=== PATIENT | female | born 1945 | race Hispanic/Latino ===

== ENCOUNTER 2019-11-20 11:10 | Inpatient (IN) | payer MEDICARE, BC, SELFPAY ==
--- NOTE | ~2019-11-20 | XR_ITS ---
EXAMINATION: XR chest 1V portable DATE: 11/22/2019 05:49 INDICATION: Left arm swelling. TECHNIQUE: A single frontal view of the chest was obtained. COMPARISON: Chest CT 11/21/2019 FINDINGS: The patient is rotated to her right. There are airspace opacities in left perihilar region and left lower lung zone. No pleural effusion or pneumothorax. Cardiomegaly is noted. There are is a prominent left paracardial fat pad. Mediastinal lipomatosis is noted. IMPRESSION: 1. Airspace opacities in left perihilar region and left lower lung zone, consistent with atelectasis versus pneumonia. 2. Cardiomegaly. Reviewed, dictated and finalized at location A. ICAL LABORATORY AIDES TEACHER IMPRESSION: 1. Airspace opacities in left perihilar region and left lower lung zone, consis tent with atelectasis versus pneumonia. 2. Cardiomegaly.
--- NOTE | ~2019-11-20 | US_ITS ---
EXAMINATION: US venous doppler [facility] DATE: 11/21/2019 08:19 INDICATION: Lower limb edema. TECHNIQUE: Grayscale ultrasound images without and with compression and Doppler ultrasound images of the bilateral lower extremity veins were obtained. COMPARISON: None. FINDINGS: The visualized portions of right common femoral vein, profunda (deep) femoral vein, femoral vein, pop liteal vein, and greater saphenous vein outflow are patent. The calf veins are not well visualized. The visualized portions of left common femoral vein, profunda femoral vein, femoral vein, popliteal v ein, and greater saphenous vein outflow are patent. The calf veins are not well visualized. IMPRESSION: 1. No deep venous thrombosis. Reviewed, dictated and finalized at location A. F UNIT FORESTER
--- NOTE | ~2019-11-20 | US_ITS ---
. EXAMINATION: US renal BI DATE: 11/21/2019 08:20 INDICATION: Acute renal failure. TECHNIQUE: Multiple ultrasound grayscale images of the kidneys were obtained. COMPARISON: None. FINDINGS: The right kidney measures 9.2 x 3.9 x 4.8 cm. The left kidney measures 9.3 x 5.4 x 4.9 cm. There is n o hydronephrosis. The bladder is not well distended. IMPRESSION: 1. Normal kidneys. No hydronephrosis. Reviewed, dictated and finalized at location A. ER PICKER
--- NOTE | ~2019-11-20 | MR_ITS ---
EXAMINATION: MR brain/brain stem wo con DATE: 11/23/2019 12:26 INDICATION: Altered mental status. TECHNIQUE: Magnetic resonance imaging (MRI) of the brain and brainstem was performed without intraven ous contrast. Sequences included sagittal and axial T1-weighted FSE, axial diffusion-weighted FS EPI, axial T2*-weighted GRE, axial T2-weighted FLAIR Propeller, and axial T2-weighted Propeller. Apparent diffusion coefficient (ADC) maps were created. COMPARISON: Head CT 11/22/2019 FINDINGS: There are scattered areas of nonspecific increased T2-weighted signal intensity in the cere bral white matter. There is a small area of cystic encephalomalacia in the posterior right frontal lo be sanabria radiata. There is a small area of cystic encephalomalacia in the left frontoparietal centru m semiovale. There is an old infarct in the left temporal occipital region. There is no acute ischemi c infarct or intracranial hemorrhage. The ventricles are normal in size. There are likely changes of ocular lens replacement surgeries. There is mucosal thickening in the paranasal sinuses. There is flu id in left maxillary sinus. There are small bilateral mastoid effusions. IMPRESSION: 1. Old infarcts involving the left temporal occipital region, left frontoparietal white matter, and r ight frontal lobe white matter. 2. Moderate nonspecific cerebral white matter disease, which likely represents chronic small vessel i schemic disease. Reviewed, dictated and finalized at location A. UCT MARKETING DIRECTOR IMPRESSION: 1. Old infarcts involving the left temporal occipital region, left frontopariet al white matter, and right frontal lobe white matter. 2. Moderate nonspecific cerebral white matter disease, which likely represents chronic small vessel ischemic disease.
--- NOTE | ~2019-11-20 | US_ITS ---
EXAMINATION: US carotid duplex BI DATE: 11/23/2019 09:40 INDICATION: Stroke. TECHNIQUE: Grayscale, color Doppler, and pulsed Doppler images of the cervical carotid arteries were obtained. The degree of vessel stenosis is placed in one of the following categories: normal, <50%, 5 0-69%, >=70% but less than near-occlusion, near-occlusion, or total occlusion. Note that percent sten osis relative to normal distal artery lumen diameter is indirectly measured from velocity measurement s as described by Leonardo, et al. Radiology 2003; [id number]. COMPARISON: None. FINDINGS: RIGHT: The right common carotid artery (CCA) peak systolic velocity (PSV) is 96 cm/s. The right internal car otid artery (ICA) PSV is 116 cm/s. The right ICA end-diastolic velocity (EDV) is 19 cm/s. The right I CA/CCA PSV ratio is 1.2. Grayscale and color Doppler images yield an estimate of <50% diameter reduct ion from plaque in the ICA. There is antegrade flow in the right vertebral artery. LEFT: The left CCA PSV is 100 cm/s. The left ICA PSV is 90 cm/s. The left ICA EDV is 24 cm/s. The left ICA/ CCA PSV ratio is <1. Grayscale and color Doppler images yield an estimate of <50% diameter reduction from plaque in the ICA. There is antegrade flow in the left vertebral artery. IMPRESSION: 1. <50% stenosis in the right internal carotid artery. 2. <50% stenosis in the left internal carotid artery. Reviewed, dictated and finalized at location A. E CUTTER
--- NOTE | ~2019-11-20 | US_ITS ---
EXAMINATION: US venous doppler UE EXAM DATE: 11/20/2019 12:24 INDICATION: Shortness of breath, left arm swelling for 3 days. TECHNIQUE: Multiple grayscale, color flow, Doppler sonographic images of the left upper extremity vei ns obtained by technologist. Compression was performed where able. Reportedly the radial and ulnar v eins were not evaluated, exam was ended because patient developed change in mental status during exam . There is no prior study for comparison. FINDINGS: Left upper extremity: Jugular vein: ------------> Normal. Subclavian vein: --------> Normal. Axillary vein:------------> Normal. Brachial vein:-----------> Normal. Basilic vein: ------------> Normal. Cephalic vein: ----------> Normal. Radial vein: ------------> Not evaluated. Ulnar vein: > Not evaluated. IMPRESSION: No evidence of deep venous thrombosis of the left upper extremity. Radial and ulnar veins not assessed. Reviewed, dictated and finalized at location B. ALER
--- NOTE | ~2019-11-20 | XR_ITS ---
EXAMINATION: XR chest 2V DATE: 11/26/2019 08:48 INDICATION: Shortness of breath and cough. TECHNIQUE: Frontal and lateral views of the chest were obtained. COMPARISON: Chest single view 11/22/2019, chest CT 11/21/2019 FINDINGS: There is a small left pleural effusion. There are airspace opacities in right lower lung zo ne and left mid and lower lung zones. No pneumothorax. Cardiomegaly is noted. There is focal mild yanet nosis of the trachea at the thoracic inlet, which may be from intubation injury. IMPRESSION: 1. Worsened small left pleural effusion. 2. Worsened airspace opacities in right lower lung zone and left mid and lower lung zones, consistent with atelectasis versus pneumonia. 3. Cardiomegaly. Reviewed, dictated and finalized at location A. CTOR SALES AND MARKETING
--- NOTE | ~2019-11-20 | XR_ITS ---
MODIFIED ESOPHAGRAM HISTORY: Dysphagia. TECHNIQUE: Modified barium esophagram was performed on 11/28/2019. I administered fluoroscopy and perfo rmed the exam with speech pathologist. Patient was seated for lateral fluoroscopic imaging for inges tion of thin liquids, pudding, solids and quantified amounts, followed by thin liquids an uncontrolle d amounts. This was recorded on tape. A single fluoroscopic spot image was also recorded. The DAP for this procedure was 2.60 Gycm2. The amount of fluoroscopy time used during this procedure was 2.5 min utes. FINDINGS: Oral stage: Mature spillage into the pharynx with every consistency. Pharyngeal stage: Trace laryngeal penetration following peaches with thin liquids which cleared with subsequent swallows. No aspiration. Cervical/esophageal stage: Adequate function. IMPRESSION: Trace laryngeal penetration without aspiration. Please correlate with speech pathologist findings and specific feeding recommendations. Reviewed, dictated and finalized at location A. FERRIER IMPRESSION: Trace laryngeal penetration without aspiration. Please correlate [facility] speech pathologist findings and specific feeding recommendations.
--- NOTE | ~2019-11-20 | CT_ITS ---
EXAMINATION:CT chest wo con DATE: 11/21/2019 08:19 INDICATION: Left arm swelling. TECHNIQUE: Computed tomography (CT) of the chest was performed without intravenous contrast. Automate d exposure control and iterative reconstruction technique were employed. The dose-length product (DLP ) was 691.37 mGy-cm. COMPARISON: None. FINDINGS: There is smooth septal thickening in the lungs, consistent with mild pulmonary edema. There is mild atelectasis in the lungs with a lower lobe predominance. There is mucous plugging in left lo wer lobe. There are small pleural effusions. Cardiomegaly is noted. There are coronary artery calcifi cations. No pericardial effusion. There is a small sliding hiatal hernia. There is a small volume of ascites in the hiatal hernia. There is mild mediastinal lymphadenopathy, likely reactive. Body wall e jp is noted, left worse than right. There is mild thoracic spondylosis. There is a benign bone rosalie nd in T10 vertebral body. IMPRESSION: 1. Mild pulmonary edema. 2. Small pleural effusions. 3. Mucous plugging in left lower lobe. 4. Cardiomegaly. 5. Asymmetric body wall edema, worse on the left. 6. Small sliding hiatal hernia. Reviewed, dictated and finalized at location A. HIATRIC ATTENDANT
--- NOTE | ~2019-11-20 | CT_ITS ---
EXAMINATION: CT brain wo con DATE: 11/22/2019 16:17 INDICATION: Altered mental status with confusion and inability to follow instructions. TECHNIQUE: Computed tomography (CT) of the head was performed without intravenous contrast. Sagittal and coronal reconstructions were performed. The mA was adjusted according to patient size. Iterative reconstruction technique was employed. The dose-length product was 983.67 mGy-cm. COMPARISON: None FINDINGS: No acute intracranial hemorrhage, acute infarction or abnormal extra axial fluid collection. There is a region of prominent nonspecific vasogenic edema in the left parietal lobe without evident volume l oss or loss of joshi matter density. More subtle mild scattered white matter hypoattenuation consisten t with chronic small vessel ischemic disease. Symmetric prominence of the sulci and ventricles consis tent with mild age-appropriate diffuse cerebral volume loss. No mass/mass effect. Changes of bilatera l intraocular lens replacement. The orbits and mastoid air cells are normal. Mild to moderate mucosa l thickening throughout the paranasal sinuses with layering mucus in the left maxillary sinus. Tiny b ilateral mastoid effusions. Intracranial calcified cerebral atherosclerosis is noted. IMPRESSION: 1. Moderate-sized region of prominent vasogenic edema in the left parietal lobe. Differential include s malignancy either primary or metastatic, infection, trauma or hemorrhage although no acute hemorrha ge is appreciated, ischemia including venous thrombosis, focal inflammation and acute hypertensive en cephalopathy. Recommend further evaluation with pre and postcontrast MRI. Reviewed, dictated and finalized at location A. ER ARMAMENT IMPRESSION: 1. Moderate-sized region of prominent vasogenic edema in the left parietal lobe . Differential includes malignancy either primary or metastatic, infection, tra carlos or hemorrhage although no acute hemorrhage is appreciated, ischemia includi ng venous thrombosis, focal inflammation and acute hypertensive encephalopathy. Recommend further evaluation with pre and postcontrast MRI.
[2019-11-20 11:25] LABS: Glucose Point of Care 61 (65-105)
[2019-11-20 11:26] VITALS: BP 151/92; PULSE 55; RESP 16; TEMP 36.8; O2SAT 99
--- NOTE | 2019-11-20 11:33 | ED.EXTPRO ---
HPI - Extremity Problem General Chief complaint: Extremity Problem,Nontraumatic Stated complaint: hand swelling Time Seen by Provider: 11/20/19 11:23 Source: patient Mode of arrival: EMS Limitations: other (poor historian) History of Present Illness HPI Narrative: Pt is a 73 y/o female who presents to the ED, via EMS, from [facility], with c/o lt arm swelling that started 2 days ago. Pt states that she had a stroke last year and has residual lt leg paralysis. She denies lt arm pain and states that she did not fall recently. Pt states that she thought she got a spider bite on her lt arm but she denies itching or pain to her lt arm. She notes that she had a spider bite in the past and had a reaction to it. Pt reports BLE swelling and pain and states that she does not walk since her CVA. She denies SOB and she is not on any blood thinners. A complete HPI is limited d/t pt being a poor historian. MD Complaint: extremity swelling Onset (ago): day(s) (2) Pain Consistency: constant Location: left and upper extremity Associated symptoms: other (BLE swelling and pain) Related Data Home Medications Medication Instructions Recorded Confirmed Mucinex 600 mg PO BID 11/20/19 11/20/19 Tylenol 325 mg PO Q6H PRN 11/20/19 11/20/19 amlodipine 10 mg PO DAILY 11/20/19 11/20/19 amoxicillin-pot clavulanate 1 tablet PO BID 11/20/19 11/20/19 famotidine 20 mg PO DAILY 11/20/19 11/20/19 ferrous sulfate 325 mg PO BID 11/20/19 11/20/19 furosemide 20 mg PO DAILY 11/20/19 11/20/19 loratadine 10 mg PO DAILY 11/20/19 11/20/19 Allergies Allergy/AdvReac Type Severity Reaction Status Date / Time No Known Allergies Allergy Verified 11/20/19 15:05 Review of Systems Review of Systems: All systems reviewed & are unremarkable except as noted in HPI and below Respiratory: Respiratory: Denies dyspnea Musculoskeletal: Musculoskeletal: Reports joint swelling (LUE, BLE) and Reports other (Reports BLE pain; Denies LUE pain) Integumentary/Breasts: Skin/Breast: Reports pruritus (to LUE) [facility] Past Medical History Medical History (Updated 11/20/19 @ 19:49 by Oziel Jara MD) Anemia CVA (cerebral vascular accident) HTN (hypertension) Left-sided weakness Surgical History Surgical History (Updated 11/20/19 @ 12:29 by Salome Morgan) No significant past surgical history Social History Social History (Updated 11/20/19 @ 12:30 by Salome Morgan) Smoking status: Never smoker Alcohol intake: never Substance use: never Living arrangements: assisted living Spiritual care concerns: No Agree to blood products: Yes Exam Narrative: Exam Narrative: GENERAL: Chronically ill-appearing, well-nourished, and in no acute distress. HEAD: Normocephalic, atraumatic. EYES: PERRL and EOMI. ENT: Mucous membranes moist. CHEST: Clear to auscultation. No respiratory distress. HEART: Bradycardic and regular. Normal peripheral pulses. ABDOMEN: Soft, nontender, nondistended, normal active bowel sounds. EXTREMITIES: Chronic bilateral lower extremity edema that is nonpitting. There is significant left upper extremity edema pitting up to the deltoid. Normal strength bilateral upper extremities. Chronic weakness in the left lower extremity from previous stroke. SKIN: Warm, dry, no rash. NEURO: Alert and oriented x 2-3 and is slow to answer questions. Course Course Emergency Course: I discussed the case with patient's primary care doctor in [place] Dr. Owusu. He reports that patient's creatinine of three-point is abnormal and compared to the lab from 3 years ago where she was at 1.2. Should he reports she was recently hospitalized at [facility] and we will request records. Patient has been receiving Lasix over the last 5 days to decrease edema in her upper extremity which has improved it but the cause is yet to be determined. Additionally while patient was getting her ultrasound she became lightheaded and diaphoretic. Blood
[2019-11-20 12:28] LABS: Glucose Point of Care 59 (65-105)
[2019-11-20] MEDS: DEXTROSE 50% 25 GM/50 ML SYRINGE (12:28)
[2019-11-20 12:37] LABS: Basophils Percent Auto 0.5 % (0.2-1.2); Eosinophils Absolute Auto 0.2 K/mm3 (0-0.3); Eosinophils Percent Auto 2.9 % (0-4.4); Hematocrit 29.3 % (37.0-47.0); Hemoglobin 9.1 g/dL (12.0-15.0); Immature Granulocyte Absolute 0.02 K/mm3 (0.00-0.031); Immature Granulocyte Percent A 0.3 % (0-0.5); Immature Platelet Fraction Pct 12.4 % (0.9-11.2); Lymphocytes Absolute Auto 0.83 K/mm3 (0.9-3.2); Lymphocytes Percent Auto 13.2 % (18.3-44.2); Mean Corpuscular HGB Conc 31.1 g/dl (32-36); Mean Corpuscular Volume 96.7 fl (80-100); Mean Platelet Volume 13.4 fl (7.4-10.4); Monocytes Absolute Auto 0.3 K/mm3 (0.1-0.6); Monocytes Percent Auto 5.4 % (2.6-8.5); Neutrophils Absolute Auto 4.9 K/mm3 (1.3-6.7); Neutrophils Percent Auto 77.7 % (45.5-73.1); Nucleated Red Blood Cells Absolute Auto 0.2 K/mm3 (0.0-0.012); Nucleated Red Blood Cells Perc 2.4 % (0.0-0.2); Platelet Count Result 196 k/mm3 (150-375); Red Blood Count 3.03 M/mm3 (4.2-5.4); Red Cell Distribution Width 16.4 % (11.5-14.5); White Blood Count 6.3 K/mm3 (4.5-10.0)
--- NOTE | 2019-11-20 12:40 | PC.NURSE ---
Pt. katina Tommie phone number [phone]. POA
[2019-11-20 12:46] LABS: INR 1.2; Prothrombin Time 14.4 Seconds (11.1-14.7)
[2019-11-20 12:52] LABS: Blood Urea Nitrogen 62 mg/dL (7-17); Calcium 8.8 mg/dL (8.4-10.2); Carbon Dioxide 19 mmol/L (22-30); Chloride 109 mmol/L (98-107); Estimated Glomerular Filt Rate 12; Glucose 68 mg/dL (65-105); Sodium 144 mmol/L (137-145)
[2019-11-20 13:14] LABS: Glucose Point of Care 99 (65-105)
[2019-11-20 13:51] LABS: Partial Thromboplastin Time 57.6 SECONDS (22.3-36.8)
[2019-11-20 15:42] VITALS: BP 111/51; PULSE 51; RESP 16; O2SAT 98
--- NOTE | 2019-11-20 15:49 | PC.NURSE ---
Called Tommie Velasquez, Pt. son and gave them an update.
--- NOTE | 2019-11-20 15:53 | ADMGEN ---
This patient, Maryann Velasquez, was admitted to 3 [facility] Surg Room 307-01. Patient/family oriented to hospital policies and general routines including ID bracelet, bed and alarms, visiting hours, pain management, procedures, bathroom and other care routines, personal items, smoking policy, room service/diet, and visiting hours. Valuables list has been completed. Information on how to activate the Rapid Response Team has been discussed. Patient/Family are encouraged to report perceived risks to care and to ask questions if they do not understand what they are told or what they should do.
[2019-11-20 16:00] VITALS: BP 104/35; PULSE 93; RESP 18; TEMP 36.2; O2SAT 96
[2019-11-20] MEDS: SODIUM CHLORIDE 0.9% IV 1,000 ML 125 ML IV CONT (16:34)
[2019-11-20 18:39] VITALS: BMI 38.9
[2019-11-20 22:00] VITALS: BP 106/50; PULSE 50; RESP 16; TEMP 35.4; O2SAT 97
[2019-11-20] MEDS: ACETAMINOPHEN 325 MG TABLET 650 MG PO (23:33)
--- NOTE | 2019-11-20 23:58 | PM.IMHP ---
H&P: HPI History of Present Illness Chief complaint: acute renal failure Narrative: Maryann Velasquez is a 73 year old female who resides at [facility]. The patient stated that she has been having some swelling to her left upper arm. She has had a previous stroke in the past that affected her left side but she does not recall her arm being like this before. Patient also has a scar noted to her left wrist and she does not recall what type of surgery that she had it was reported that she had a spider bite to her left arm in the past and I am wondering if she had surgery to that left arm because of that. The patient has not walked since she has had that CVA. She has been complaining of itching to her back and lower extremities. The patient denies having any kidney problems. She has not fallen or had any injuries the left arm it. No swelling was noted to the face. Limited history from the patient. Patient was recently hospitalized at [facility] and ER said that they requested records. She has also been receiving Lasix over the last 5 days due to increased edema to lower extremities. The patient had a ultrasound of the left arm which was negative for DVT. Her blood sugar was noted to be 59 and she received D50 and drink some juice. The patient stated she has not been drinking as much because her left tonsil hurts her. I was not able to see posterior pharyngeal area. Patient was complaining of itching so I gave her 1 time dose of Benadryl. She was started on IV fluids. Patient has been on Lasix for increased swelling to her lower extremities but denies any history of CHF. Date of service is 11/20/2019 Review of Systems Review of Systems: Narrative: Patient is complaining of itching and crying because she is sitting. Limited history. The patient cannot recall why she has a scar to her left wrist. The she said she did have a spider bite that had to be drained. She has had a stroke in the past that affected her left side. All systems reviewed & are unremarkable except as noted in HPI and below ROS unobtainable: unobtainable due to mental status Constitutional: Constitutional: Reports as per HPI and Reports no additional constitutional complaints Eyes: Eyes: Reports as per HPI and Reports no additional eye complaints ENT: Reports system reviewed and no additional complaints, except as documented and Reports Normal hearing present Cardiovascular: Cardiovascular: Reports no additional cardiovascular complaints Respiratory: Respiratory: Reports no additional respiratory complaints and Reports no additional respiratory complaints Gastrointestinal: Gastrointestinal: Reports as per HPI and Reports no additional gastrointestinal complaints Musculoskeletal: Musculoskeletal: Reports no additional musculoskeletal complaints Integumentary/Breasts: Skin/Breast: Reports system reviewed and no additional complaints, except as docu and Reports as per HPI Neurologic: Reports system reviewed and no additional complaints, except as documented, Reports as per HPI and Reports Normal hearing present Psychiatric: Psychiatric: Reports no additional psychiatric complaints and Reports as per HPI Endocrine: Endocrine: Reports no additional endocrine complaints Hematologic/Lymphatic: Hematologic/Lymphatic: Reports no additional hematologic/lymphatic complaints Allergic/Immunologic: Allergic/Immunologic: Reports no additional allergic/immunologic complaints [facility] Past Medical History Medical History (Updated 11/21/19 @ 00:10 by Leda Paulson NP) Anemia CVA (cerebral vascular accident) Left side effects HTN (hypertension) Left-sided weakness Surgical History Surgical History (Updated 11/21/19 @ 00:17 by Leda Paulson NP) H/O left wrist surgery S/P hernia repair Family History Family History (Updated 11/21/19 @ 00:18 by Leda Paulson NP) Mother due to natural causes Sibling Diabetes mellitus Father
[2019-11-21] VITALS (14 sets, daily range): BP systolic 96–110; BP diastolic 42–50; PULSE 50–78; RESP 16–18; TEMP 35.4–36.8; O2SAT 90–98
--- NOTE | 2019-11-21 | ECHO_ITS ---
Patient Info Name: Maryann Velasquez Age: 73 years : 1945 Gender: Female Ht: 63 in Wt: 219 lbs BSA: 2.15 m2 HR: 62 bpm BP: 102 / 42 mmHg Technical Quality: Good Exam Date: 11/21/2019 3:11 PM Exam Location: [facility] Patient Status: Inpatient Admit Date: 11/21/2019 Staff Ordering Physician: Leda Paulson NP Railroad Construction Director: Jatinder Gomes RDCS, RT Attending Provider: Gina Gupta MD Referring Physician: Lorene BASHIR; Exam Type: CA echo doppler color flow Study Info Indications R60.0 - Localized edema Complete two-dimensional, color flow and Doppler transthoracic echocardiogram is performed. Summary 1. Left ventricular chamber dimension is mildly enlarged. 2. Left ventricular systolic function is normal, estimated at 60-65%. 3. There is moderately increased left ventricular wall thickness. 4. The left ventricular diastolic function is abnormal. 5. E/e' 23 is significantly elevated. 6. Left atrial chamber dimension is moderately enlarged. 7. Right atrial chamber dimension is mildly enlarged. 8. The mitral valve has moderately calcified annulus. 9. There is mild mitral valve regurgitation. 10. There is moderate tricuspid valve regurgitation. 11. Mild pulmonary hypertension, estimated pulmonary arterial systolic pressure is 45 mmHg. 12. There is trace pulmonic regurgitation. 13. Dilated inferior vena cava with >50% collapse upon inspiration consistent with elevated right atrial pressure, 10 mmHg. 14. There is small circumferential pericardial effusion. Left Ventricle E/e' 23 is significantly elevated. Left ventricular chamber dimension is mildly enlarged. Left ventricular systolic function is normal, estimated at 60-65%. There is moderately increased left ventricular wall thickness. The left ventricular diastolic function is abnormal. Right Ventricle Right ventricular chamber dimension is normal. Right ventricular systolic function is normal. Left Atria Left atrial chamber dimension is moderately enlarged. Right Atria Right atrial chamber dimension is mildly enlarged. Aortic Valve The aortic valve is trileaflet. There is no aortic valve stenosis. There is no aortic valve regurgitation. Pulmonic Valve There is trace pulmonic regurgitation. Mitral Valve The mitral valve has moderately calcified annulus. There is no mitral valve stenosis. There is mild mitral valve regurgitation. Tricuspid Valve There is moderate tricuspid valve regurgitation. Mild pulmonary hypertension, estimated pulmonary arterial systolic pressure is 45 mmHg. Pericardium/Pleural There is small circumferential pericardial effusion. Inferior Vena Cava Dilated inferior vena cava with >50% collapse upon inspiration consistent with elevated right atrial pressure, 10 mmHg. Aorta The aortic root size at the sinus of Valsalva is normal. Left Ventricular Outflow Tract Name Value Normal LVOT 2D LVOT Diameter 2.0 cm LVOT Doppler LVOT Peak Gradient 3 mmHg LVOT Mean Gradient 1 mmHg LVOT VTI 20 cm
--- NOTE | 2019-11-21 01:30 | PC.NURSE ---
4oz orange juice given for low BS. Waiting for call back from hospitalist.
[2019-11-21 01:31] LABS: Glucose Point of Care 64 (65-105)
[2019-11-21 02:07] LABS: Glucose Point of Care 70 (65-105)
--- NOTE | 2019-11-21 02:23 | PC.NURSE ---
4oz apple juice and titus crackers given.
[2019-11-21 02:39] LABS: Glucose Point of Care 85 (65-105)
[2019-11-21] MEDS: SODIUM CHLORIDE 0.9% IV 1,000 ML 125 ML IV CONT (03:51)
[2019-11-21] MEDS: FAMOTIDINE 20 MG TABLET PO (09:59)
[2019-11-21] MEDS: FERROUS SULFATE 324 MG TABLET PO ×2 (09:59→18:05)
[2019-11-21] MEDS: ACETAMINOPHEN 325 MG TABLET 650 MG PO (10:00)
[2019-11-21 10:46] LABS: Blood Urea Nitrogen 61 mg/dL (7-17); Calcium 8.4 mg/dL (8.4-10.2); Carbon Dioxide 18 mmol/L (22-30); Chloride 112 mmol/L (98-107); Estimated CRCL calculation 14 ml/min; Estimated Glomerular Filt Rate 12; Glucose 57 mg/dL (65-105); Potassium 5.2 mmol/L (3.4-5.0); Sodium 143 mmol/L (137-145)
[2019-11-21] MEDS: GLUCOSE ORAL GEL 15 GM OF GLUCSE IN 37.5 GM TUBE PO (10:51)
--- NOTE | 2019-11-21 11:01 | PM.IMPN ---
Progress Note: A&P Assessment and Plan (1) Acute renal failure: Qualifiers: Acute renal failure type: unspecified Qualified Code(s): N17.9 - Acute kidney failure, unspecified Code(s): N17.9 - Acute kidney failure, unspecified Status: Acute Assessment and Plan: STop iv fluids pt is edematous, US renal completed, creat is over 3, correct potassium, consult nephrology. pass catheter monitor UO. (2) Anemia: Code(s): D64.9 - Anemia, unspecified Status: Chronic Assessment and Plan: Most likely is chronic. (3) HTN (hypertension): Code(s): I10 - Essential (primary) hypertension Status: Chronic Assessment and Plan: Continue lasix hold other BP medications (4) Arm edema: Code(s): R60.0 - Localized edema Status: Acute Assessment and Plan: Doppler was performed to the left upper extremity which was negative for any DVT. Could this possibly SVC syndrome? Rpt US of upper ext. lower ext is negative. (5) Hypoglycemia: Code(s): E16.2 - Hypoglycemia, unspecified Status: Acute Assessment and Plan: Continue to monitor blood sugars. Check cortisol level. Could she have some adrenal insufficiency? Subjective Date/time seen: 11/21/19 11:01 Interval history: 73 year old female who resides at [facility]. The patient stated that she has been having some swelling to her left upper arm. She has had a previous stroke in the past that affected her left side but she does not recall her arm being like this before. Pt is a poor historian appears tired and malaise. Holding some conversation. Pt looks swollen all over. potassium is 5.2, creat is 3.7. US renal is normal, no hydronephrosis. Venous dopplers are negative. History of CVA and HTN. Review of Systems Review of Systems: All systems reviewed & are unremarkable except as noted in HPI and below Respiratory: Respiratory: Reports chest congestion and Reports dyspnea Comments: whitish phelgm Gastrointestinal: Gastrointestinal: Denies no additional gastrointestinal complaints Integumentary/Breasts: Comments: Overall anasarca Exam Const: General: lethargic, uncomfortable and other (unwell, facial swelling ) Orientation/consciousness: oriented to person and oriented to place Limitations: no limitations Chest: Chest palpation & inspection: normal inspection of the chest Resp: Effort & Inspection: normal respiratory effort Auscultation: clear to auscultation bilaterally Percussion: percussion normal Cardio: Palpation: normal PMI Rate: regular rate Rhythm: regular rhythm Heart sounds: S1 normal heart sound present and S2 normal heart sound present Neuro: General: oriented to person and oriented to place Cranial nerves: Yes Equal, round and reactive pupils present and Yes Normal hearing present Cognition (Neuro): normal cognition Speech: normal speech Gait exam (Neuro): Normal gait present Motor exam (neuro): 5/5 motor strength present throughout Sensory Exam: normal sensation Extrem: General: other (3 plus pitting edema of Bilateral legs up to groin area ) Psych: Appearance: grossly normal Mental Status: mental status grossly normal Speech and movement: Normal speech and movement present Affect: normal affect Attitude: cooperative Thought process: Normal thought process present Insight: Good insight present (Psych) Judgement: Good judgement present (Psych) Objective Data Vital Signs Vital Signs: Vital Signs - 24 hr 11/20/19 11:26 11/20/19 15:42 11/20/19 16:00 Temperature 36.8 C 36.2 C L Pulse Rate 55 L 51 L 93 Respiratory Rate 16 16 18 Blood Pressure 151/92 H 111/51 L 104/35 L Pulse Oximetry 99 98 96 11/20/19 22:00 11/21/19 01:00 11/21/19 01:15 Temperature 35.4 C L 35.5 C L 35.5 C L Pulse Rate 50 L 52 L 52 L Respiratory Rate 16 16 16 Blood Pressure 106/50 L 103/50 L 101/46 L Pulse Oximetry 97 96 95 11/21/19 01:30 11/21/19 01:45
[2019-11-21] MEDS: DEXTROSE 50% 25 GM/50 ML SYRINGE IV PUSH ×5 (11:15→23:20)
[2019-11-21 11:37] LABS: Glucose Point of Care 58 (65-105)
[2019-11-21 11:37] LABS: Glucose Point of Care 122 (65-105)
[2019-11-21 11:37] LABS: Glucose Point of Care 62 (65-105)
[2019-11-21] MEDS: SODIUM POLYSTYRENE SULFONONATE 15 GM/60 ML BTL PO (12:36)
[2019-11-21] MEDS: HYDROCORTISONE 1% 30 GM OINTMENT 1 APPLIC TOPICAL ×2 (12:37→21:05)
[2019-11-21 15:47] LABS: Urine Cotinine NEGATIVE
[2019-11-21 15:54] LABS: Creatinine Urine 129.3 mg/dL; Urea Random Urine 392 MG/DL
[2019-11-21 15:57] LABS: Sodium Urine Random 23 meq/L
[2019-11-21 16:55] LABS: MALB Creatinine Ratio 685.5 mg/g (0-30); Microalbumin Urine Random 886.4 mg/L (0-16.7)
[2019-11-21 16:56] LABS: Creatinine Urine 130.2 mg/dL; Total Protein Urine Random 93 mg/dL
--- NOTE | 2019-11-21 17:50 | PM.CNNEP ---
Assessment and Plan Assessment and plan (1) Acute renal failure: Qualifiers: Acute renal failure type: unspecified Qualified Code(s): N17.9 - Acute kidney failure, unspecified Code(s): N17.9 - Acute kidney failure, unspecified Status: Acute (2) Chronic kidney disease, stage 3: Code(s): N18.3 - Chronic kidney disease, stage 3 (moderate) Status: Acute (3) Arm edema: Code(s): R60.0 - Localized edema Status: Acute (4) HTN (hypertension): Code(s): I10 - Essential (primary) hypertension Status: Chronic (5) Anemia: Code(s): D64.9 - Anemia, unspecified Status: Chronic Assessment and Plan: . Additional Plan Maryann has acute kidney injury on top of her baseline kidney disease. Unfortunately, the exact etiology of this insult to her kidneys is not entirely clear at this time. Her urine electrolytes that were just done recently suggest prerenal azotemia/volume depletion despite the fact that she has clear evidence of volume overload/swelling/edema on physical exam. Her renal ultrasound demonstrates no anatomical abnormalities either. This would appear to be a situation where she is intravascularly volume depleted despite the fact that she has outward signs of significant/severe fluid retention. This type of phenomenon is usually seen in patients who have cardiomyopathies, liver disease, or any type of physiological state with there is decreased effective circulating volume. I suppose it could also be related by the simple fact that she is not eating and drinking very well and possibly resulting in some degree of hypoalbuminemia thereby causing third-spacing and hence the a for mentioned swelling/edema. Why this patient has this condition is not entirely clear to me at this time. As she is quite swollen and not making much urine, I am still tempted to give a trial of high-dose IV diuretics to see if this augments her urine output and maybe helps her overall volume status. Although her albumin is not that low, another consideration would be the use of IV albumin ?chased? by IV diuretics to see if this would augment her urine output and at the same time maintain stability in her renal function as well. I did have a fairly long lengthy discussion with her son (> 20 minutes) at bedside regarding her renal dysfunction and my concern that if all conservative therapy fails to improve her current condition, she may require renal replacement therapy/dialysis to maintain stability in her electrolytes, volume status, and clearance of the uremic toxins. He appeared to voice understanding as already mentioned, she was on dialysis before about a year ago although the circumstances were different. I will continue to follow the patient with you while she remains hospitalized and make further recommendations during her hospital course. Thank you for allowing me to participate in the care of this patient. History of Present Illness Reason for Consult Consult date: 11/21/19 Reason for consult: acute renal failure (on chronic kidney disease) Chief Complaint Chief complaint: acute renal failure History of Present Illness Narrative: All of the information I have obtained is from review of the electronic medical record, records from her previous hospitalization at [facility] [place] [place] approximately a year ago, and the patient's family at bedside as the patient is a very poor historian. The patient is a 73 y/o female with a past medical history as outlined below who presented to [facility] ER for her assisted living facility with complaints of left arm. Patient has a history of a CVA approximately year ago with associated left-sided paralysis. Apparently, she always has some degree of mild edema/swelling on the left side of her body but in the last few days it seems to have clinically deteriorated/worsened. She also has bilateral lower extremity swelling worse on the left b
[2019-11-21 18:11] LABS: Glucose Point of Care 45 (65-105)
[2019-11-21 18:11] LABS: Glucose Point of Care 81 (65-105)
[2019-11-21] MEDS: BUMETANIDE INJ 2.5 MG/10 ML VIAL 2 MG IV PUSH (18:39)
[2019-11-21 21:51] LABS: Glucose Point of Care 76 (65-105)
[2019-11-21 21:51] LABS: Glucose Point of Care 60 (65-105)
[2019-11-21 22:08] LABS: Glucose Point of Care 52 (65-105)
[2019-11-21] MEDS: DEXTROSE 5% 1,000 ML 1,000 ML 30 ML IV CONT (22:28)
[2019-11-21 23:30] LABS: Glucose Point of Care 71 (65-105)
[2019-11-21 23:30] LABS: Glucose Point of Care 51 (65-105)
[2019-11-21 23:53] LABS: Glucose Point of Care 68 (65-105)
[2019-11-22] VITALS (8 sets, daily range): BP systolic 115–145; BP diastolic 34–83; PULSE 56–75; RESP 16–20; TEMP 36.1–36.9; O2SAT 94–100
[2019-11-22] MEDS: DEXTROSE 50% 25 GM/50 ML SYRINGE IV PUSH ×3 (00:10→02:29)
[2019-11-22 00:31] LABS: Glucose Point of Care 51 (65-105)
[2019-11-22 00:55] LABS: Glucose Point of Care 88 (65-105)
[2019-11-22 01:16] LABS: Glucose Point of Care 61 (65-105)
[2019-11-22] MEDS: DEXTROSE 10% 1,000 ML 50 ML IV CONT (01:33)
[2019-11-22 02:17] LABS: Glucose Point of Care 55 (65-105)
[2019-11-22 02:56] LABS: Glucose Point of Care 68 (65-105)
[2019-11-22] MEDS: GLUCAGON FOR INJ 1 MG VIAL IM ×2 (02:59→05:26)
[2019-11-22 03:25] LABS: Glucose Point of Care 90 (65-105)
[2019-11-22 03:36] LABS: Basophils Percent Auto 0.3 % (0.2-1.2); Eosinophils Absolute Auto 0.2 K/mm3 (0-0.3); Eosinophils Percent Auto 2.5 % (0-4.4); Hemoglobin 8.1 g/dL (12.0-15.0); Immature Granulocyte Absolute 0.02 K/mm3 (0.00-0.031); Immature Granulocyte Percent A 0.3 % (0-0.5); Lymphocytes Percent Auto 13.9 % (18.3-44.2); Mean Corpuscular HGB Conc 31.2 g/dl (32-36); Mean Corpuscular Hemoglobin 29.6 pg (26-34); Mean Corpuscular Volume 94.9 fl (80-100); Mean Platelet Volume 12.5 fl (7.4-10.4); Monocytes Absolute Auto 0.5 K/mm3 (0.1-0.6); Monocytes Percent Auto 7.1 % (2.6-8.5); Neutrophils Absolute Auto 5.5 K/mm3 (1.3-6.7); Neutrophils Percent Auto 75.9 % (45.5-73.1); Nucleated Red Blood Cells Absolute Auto 0.2 K/mm3 (0.0-0.012); Nucleated Red Blood Cells Perc 2.1 % (0.0-0.2); Platelet Count Result 193 k/mm3 (150-375); Red Blood Count 2.74 M/mm3 (4.2-5.4); Red Cell Distribution Width 16.6 % (11.5-14.5); White Blood Count 7.2 K/mm3 (4.5-10.0)
[2019-11-22 03:49] LABS: Alanine Aminotransferase 23 U/L (4-35); Albumin Level 3.1 g/dL (3.5-5.1); Alkaline Phosphatase 164 U/L (38-126); Aspartate Amino Transferase 20 U/L (14-36); Bilirubin,Total 0.6 mg/dL (0.2-1.3); Blood Urea Nitrogen 60 mg/dL (7-17); Calcium 8.5 mg/dL (8.4-10.2); Carbon Dioxide 18 mmol/L (22-30); Chloride 113 mmol/L (98-107); Estimated CRCL calculation 14 ml/min; Estimated Glomerular Filt Rate 11; Glucose 84 mg/dL (65-105); Magnesium 2.4 mg/dL (1.6-2.3); Potassium 4.5 mmol/L (3.4-5.0); Sodium 144 mmol/L (137-145)
[2019-11-22 03:51] LABS: Albumin Level 3.1 g/dL (3.5-5.1); Blood Urea Nitrogen 60 mg/dL (7-17); Calcium 8.4 mg/dL (8.4-10.2); Carbon Dioxide 18 mmol/L (22-30); Chloride 112 mmol/L (98-107); Estimated CRCL calculation 14 ml/min; Estimated Glomerular Filt Rate 11; Glucose 85 mg/dL (65-105); Phosphorus 5.6 mg/dL (2.5-4.5); Potassium 4.5 mmol/L (3.4-5.0); Sodium 144 mmol/L (137-145)
[2019-11-22 04:06] LABS: Glucose Point of Care 80 (65-105)
[2019-11-22 04:28] LABS: Hepatitis B Surface Antigen Negative (Negative)
[2019-11-22 04:34] LABS: HAV RESULT Negative (Negative); Hepatitis B Core IgM Result Negative (Negative)
[2019-11-22 04:45] LABS: Hepatitis B Surface Anti Res Negative; Hepatitis C Virus Antibody Negative (Negative)
[2019-11-22 05:08] LABS: Glucose Point of Care 80 (65-105)
[2019-11-22 05:52] LABS: Add Urine Microscopic? YES; Appearance Urine Cloudy (Clear); Bilirubin Urine Negative (Negative); Blood Urine 3+ (Negative); Color Urine Yellow (Yellow); Glucose Urine UA Negative (Negative); Ketones Urine Negative (Negative); Leukocyte Esterase Ur 2+ LEU/UL (Negative); Mucus Urine Rare /lpf; Nitrate Urine Negative (Negative); Protein Urine 2+ mg/dL (Negative); RBC Urine >75 /hpf (0-2); Specific Grav Ur 1.014 (1.001-1.035); Squamous Epithelial Cell Urine Rare /hpf (Few); Urobilinogen Urine Negative mg/dL (<2.0); WBC Urine 31-50 /hpf
[2019-11-22 06:40] LABS: Glucose Point of Care 96 (65-105)
[2019-11-22 06:44] LABS: Free T4 Free Thyroxine Reflex 1.04 ng/dL (0.78-2.19)
[2019-11-22 07:29] LABS: Total Triiodothyronine (T3) 0.69 NG/ML (0.97-1.69)
[2019-11-22] MEDS: BUMETANIDE INJ 2.5 MG/10 ML VIAL 2 MG IV PUSH ×3 (08:56→18:16)
[2019-11-22] MEDS: HYDROCORTISONE 1% 30 GM OINTMENT 1 APPLIC TOPICAL ×2 (08:57→21:20)
[2019-11-22 09:16] LABS: Glucose Point of Care 73 (65-105)
[2019-11-22 11:45] LABS: Glucose Point of Care 70 (65-105)
--- NOTE | 2019-11-22 12:13 | PCSTNOTE ---
Bedside Swallow Evaluation attempted this date. Pt was somnolent and could not be roused. Respiration is wet/gurgly at baseline, and the pt's family reports coughing up phlegm when she drinks. Bedside evaluation may not be appropriate. Consider MBS when pt's mental status improves.
[2019-11-22] MEDS: DEXTROSE 10% 1,000 ML 100 ML IV CONT ×2 (12:34→23:34)
[2019-11-22] MEDS: TOLNAFTATE 1% POWDER 45 GM BTL 1 APPLIC TOPICAL ×2 (12:36→21:20)
--- NOTE | 2019-11-22 13:46 | PM.IMPN ---
Progress Note: A&P Assessment and Plan (1) Acute renal failure: Qualifiers: Acute renal failure type: unspecified Qualified Code(s): N17.9 - Acute kidney failure, unspecified Code(s): N17.9 - Acute kidney failure, unspecified Status: Acute Assessment and Plan: Pt is on diuretics, pt is edematous, US renal completed, creat is over 3, consult nephrology. pass catheter monitor UO. Continue to monitor creat. Pt may benefit from dialysis, if creat continues to raise. (2) Anemia: Code(s): D64.9 - Anemia, unspecified Status: Chronic Assessment and Plan: Most likely is chronic. (3) HTN (hypertension): Code(s): I10 - Essential (primary) hypertension Status: Chronic Assessment and Plan: Continue lasix hold other BP medications (4) Arm edema: Code(s): R60.0 - Localized edema Status: Acute Assessment and Plan: Doppler was performed to the left upper extremity which was negative for any DVT. Could this possibly SVC syndrome? Rpt US of upper ext. lower ext is negative. (5) Hypoglycemia: Code(s): E16.2 - Hypoglycemia, unspecified Status: Acute Assessment and Plan: Continue to monitor blood sugars. Check cortisol level. Could she have some adrenal insufficiency? (6) UTI (urinary tract infection): Code(s): N39.0 - Urinary tract infection, site not specified Status: Acute Assessment and Plan: pt has a UTi treat with iv rocephin pt to have blood cultures drawn ? sepsis Subjective Date/time seen: 11/22/19 13:46 Interval history: 73 year old female who resides at [facility]. The patient stated that she has been having some swelling to her left upper arm. She has had a previous stroke in the past that affected her left side but she does not recall her arm being like this before. Pt is a poor historian appears tired and malaise. Holding some conversation. Pt looks swollen all over. potassium is 4.5, creat is 3.9. US renal is normal, no hydronephrosis. Venous dopplers are negative. History of CVA and HTN. Son by her bedside, explains that she did have dialysis in the past. daughter in law mentions some lumps in her breasts, I explained she can have a US of breasts later. Pt may benefit from dialysis, continue to watch.Pt is not eating much ? confusion ? sepsis ? uremia. MBS ordered pt is on D10. Review of Systems Review of Systems: All systems reviewed & are unremarkable except as noted in HPI and below ROS unobtainable: unobtainable due to mental status Exam Const: General: lethargic, uncomfortable and other (unwell, facial swelling ) Nutritional Appearance: average body habitus and overweight Orientation/consciousness: oriented to person, oriented to place and lethargic Limitations: no limitations HENMT: Head: normal to inspection, No palpable skull fracture present, normocephalic and atraumatic Ears: hearing grossly normal bilaterally and external ears normal General nose exam: Normal external nose present, Normal nares present and No nasal polyps present Mouth: Yes Normal oral and palatal mucosa present Throat: posterior oropharynx normal Eyes: General: appearance normal, both eyes and all related structures Alignment and Position: alignment normal Periorbital: periorbital findings normal Eyelids: eyelids normal Conjunctivae: conjunctivae normal Sclera: sclerae normal Cornea: corneas normal Pupils: Equal, round and reactive pupils present and Pupil accommodation reflex normal EOM: EOMs intact bilaterally Neck: Neck: normal visual inspection, full ROM, no lymphadenopathy, trachea midline and supple Thyroid: thyroid normal Carotids: normal carotid upstroke Lymphatic: no lymphadenopathy noted Chest: Chest palpation & inspection: normal inspection of the chest Resp: Effort & Inspection: normal respiratory effort Auscultation: clear to auscultation bilaterally Percussion: percussion no
[2019-11-22 14:43] LABS: Glucose Point of Care 82 (65-105)
--- NOTE | 2019-11-22 14:51 | P.PNNP_ITS ---
Progress Note: A&P Assessment and Plan (1) Acute renal failure: Qualifiers: Acute renal failure type: unspecified Qualified Code(s): N17.9 - Acute kidney failure, unspecified Code(s): N17.9 - Acute kidney failure, unspecified Status: Acute Assessment and Plan: * etiology unclear * urine electrolytes suggest prerenal azotemia (in spite of clear evidence of volume overload) * UA suggestive of an UTI -- contributing to acute renal dysfunction?? * renal ultrasound unremarkable * confusion concerning -- possible uremia or related to acute infection versus neurological issue? (2) Chronic kidney disease, stage 3: Code(s): N18.3 - Chronic kidney disease, stage 3 (moderate) Status: Acute Assessment and Plan: * baseline creatinine ~ 1.1 - 1.2mg/dl * secondary ot HTN, vascular disease and age (3) Anasarca: Code(s): R60.1 - Generalized edema Status: Acute Assessment and Plan: * significant issue at this time * poor response to IV diuretics * will change bumex to tid dosing and add metolazone * may need DUF/renal replacement therapy just to help stabilize volume status (4) HTN (hypertension): Code(s): I10 - Essential (primary) hypertension Status: Chronic Assessment and Plan: * reasonable control at this time * given #1, do not want to overcontrol it * follow trend of hemodynamics (5) Anemia: Code(s): D64.9 - Anemia, unspecified Status: Chronic Assessment and Plan: * presumably related to BLOSSOM, CKD, and acute illness * follow trend of H/H * consider empiric Epogen (6) UTI (urinary tract infection): Code(s): N39.0 - Urinary tract infection, site not specified Status: Acute Assessment and Plan: * UA highly suggestive * follow culture results * started on antibiotics Will continue to follow. Subjective Date/time seen: 11/22/19 14:51 Not much urine output despite IV diuretics; mentation has worsened as well -- back from CT of head as nursing reports discrepancy in pupil size; ABG with acidosis as well as hypoxia; currently on ventimask. Exam Narrative: Exam Narrative: General: WD/WN female who appears lethargic Heart: normal S1 and S2; no rub Lungs: decreased at the bases Abdomen: soft, nontender, nondistended, positive bowel sounds Extremities: no cyanosis or clubbing; 2 - 3+ edema Skin: warm and dry Objective Data Vital Signs Vital Signs: Vital Signs Temp Pulse Resp BP Pulse Ox 11/22/19 06:00 36.5 C 66 16 122/44 L 94 11/21/19 22:00 36.8 C 78 16 101/45 L 96 Intake/Output Intake/Output: Intake & Output 11/19/19 11/20/19 11/21/19 11/22/19 23:59 23:59 23:59 23:59 Intake Total 120 2137 1088 Output Total 40 250 Balance 120 2097 838 Meds/Results Medications: Active Medications Generic Name Dose Route Start Last Admin Trade Name Freq PRN Reason Stop Dose Admin Acetaminophen 650 mg 11/20/19 14:20 11/21/19 10:00 Tylenol Tablet PO 650 mg Q4H PRN Administration Mild Pain (1-3) or Fever Hydrocodone Bitart/Acetaminophen 1 tab 11/20/19 14:20 11/20/19 20:57 [place] 5-325 Mg PO 1 tab Q4H PRN Administration Pain Rated 4-6 Bumetanide 2 mg 02/
--- NOTE | 2019-11-22 14:51 | PM.PNNEP ---
Progress Note: A&P Assessment and Plan (1) Acute renal failure: Qualifiers: Acute renal failure type: unspecified Qualified Code(s): N17.9 - Acute kidney failure, unspecified Code(s): N17.9 - Acute kidney failure, unspecified Status: Acute Assessment and Plan: etiology unclear urine electrolytes suggest prerenal azotemia (in spite of clear evidence of volume overload) UA suggestive of an UTI -- contributing to acute renal dysfunction?? renal ultrasound unremarkable confusion concerning -- possible uremia or related to acute infection versus neurological issue? (2) Chronic kidney disease, stage 3: Code(s): N18.3 - Chronic kidney disease, stage 3 (moderate) Status: Acute Assessment and Plan: baseline creatinine ~ 1.1 - 1.2mg/dl secondary ot HTN, vascular disease and age (3) Anasarca: Code(s): R60.1 - Generalized edema Status: Acute Assessment and Plan: significant issue at this time poor response to IV diuretics will change bumex to tid dosing and add metolazone may need DUF/renal replacement therapy just to help stabilize volume status (4) HTN (hypertension): Code(s): I10 - Essential (primary) hypertension Status: Chronic Assessment and Plan: reasonable control at this time given #1, do not want to overcontrol it follow trend of hemodynamics (5) Anemia: Code(s): D64.9 - Anemia, unspecified Status: Chronic Assessment and Plan: presumably related to BLOSSOM, CKD, and acute illness follow trend of H/H consider empiric Epogen (6) UTI (urinary tract infection): Code(s): N39.0 - Urinary tract infection, site not specified Status: Acute Assessment and Plan: UA highly suggestive follow culture results started on antibiotics Will continue to follow. Subjective Date/time seen: 11/22/19 14:51 Not much urine output despite IV diuretics; mentation has worsened as well -- back from CT of head as nursing reports discrepancy in pupil size; ABG with acidosis as well as hypoxia; currently on ventimask. Exam Narrative: Exam Narrative: General: WD/WN female who appears lethargic Heart: normal S1 and S2; no rub Lungs: decreased at the bases Abdomen: soft, nontender, nondistended, positive bowel sounds Extremities: no cyanosis or clubbing; 2 - 3+ edema Skin: warm and dry Objective Data Vital Signs Vital Signs: Vital Signs Temp Pulse Resp BP Pulse Ox 11/22/19 06:00 36.5 C 66 16 122/44 L 94 11/21/19 22:00 36.8 C 78 16 101/45 L 96 Intake/Output Intake/Output: Intake & Output 11/19/19 11/20/19 11/21/19 11/22/19 23:59 23:59 23:59 23:59 Intake Total 120 2137 1088 Output Total 40 250 Balance 120 2097 838 Meds/Results Medications: Active Medications Generic Name Dose Route Start Last Admin Trade Name Freq PRN Reason Stop Dose Admin Acetaminophen 650 mg 11/20/19 14:20 11/21/19 10:00 Tylenol Tablet PO 650 mg Q4H PRN Administration Mild Pain (1-3) or Fever Hydrocodone Bitart/Acetaminophen 1 tab 11/20/19 14:20 11/20/19 20:57 [place] 5-325 Mg PO 1 tab Q4H PRN Administration Pain Rated 4-6 Bumetanide 2 mg 11/21/19 18:25 11/22/19 08:56 Bumex Inj IV PUSH 2 mg BID DROOTHY Administration Dextrose 12.5 gm 11/21/19 02:58 11/22/19 02:29 Dextrose 50% Syringe IV PUSH 12.5 gm PRN PRN Administration Hypoglycemia Protocol Famotidine 20 mg 11/21/19 09:00 11/22/19 10:37 Pepcid PO Not Given DAILY [facility] Ferrous Sulfate 324 mg 11/21/19 09:00 11/22/19 10:38 Ferrous Sulfate PO Not Given BID DOROTHY Furosemide 20 mg 11/22/19 09:00 11/22/19 10:38 Lasix Tablet PO Not Given DAILY DOROTHY Glucagon 1 mg 11/21/19 02:58 11/22/19 05:26 Glucagon For Inj IM 1 mg PRN PRN Administration Hypoglycemia Protocol Glucose 15 gm 11/21/19 02:58 11/21/19 10:51 Glu
--- NOTE | 2019-11-22 15:21 | PCOTNOTE ---
Attempted OT Evaluation this date. Spoke with RN who states pt. is not appropriate this date for therapy as she is not following any commands. Will attempt again tomorrow if condition improves.
--- NOTE | 2019-11-22 15:50 | PCPTNOTE ---
Attempted PT eval. Azalia GOMES stated to hold therapy due to decline in medical status.
[2019-11-22 15:55] LABS: Alveolar/Arterial O2 Gradient 52.6 mmHg; Base Excess ABG -6.4 mEq/l (+/-2.0); Fractional Inspired Oxygen 21 %; HCO3 ABG 19.5 mEq/l (22.0-26.0); Oxygen Content ABG 10.5 %vol (16.0-22.0); PCO2 ABG 40.3 mmHg (35.0-45.0); PO2 FiO2 Ratio Arterial Blood 2.33 %; Total Hemoglobin 9.1 g/dL (12.0-18.0); pH ABG 7.303 (7.350-7.450)
[2019-11-22 15:57] LABS: PO2 ABG 48.9 mmHg (80.0-100.0)
[2019-11-22 15:58] LABS: Device ROOM AIR; Modified Allen's Test Pass; Oxygen Saturation ABG 80.8 % (95.0-100.0); Site Drawn RIGHT RADIAL
--- NOTE | 2019-11-22 16:05 | PC.NURSE ---
This patient, Maryann Velasquez, was transferred to IMU on 11/22/19 at 1605. Personal belongings sent with patient. Belongings list checked and signed with receiving . Report given to Rylee GOMES. Appropriate documentation sent with patient.
[2019-11-22 17:40] LABS: Glucose Point of Care 103 (65-105)
[2019-11-22] MEDS: ASPIRIN 300 MG SUPPOSITORY RECTAL (18:16)
[2019-11-23] VITALS (14 sets, daily range): BP systolic 106–121; BP diastolic 33–46; PULSE 53–76; RESP 12–22; TEMP 36–36.8; O2SAT 93–100
[2019-11-23 00:42] LABS: Glucose Point of Care 86 (65-105)
[2019-11-23 05:19] LABS: Hematocrit 25.4 % (37.0-47.0); Mean Corpuscular HGB Conc 31.5 g/dl (32-36); Mean Corpuscular Hemoglobin 29.7 pg (26-34); Mean Corpuscular Volume 94.4 fl (80-100); Mean Platelet Volume 12.3 fl (7.4-10.4); Platelet Count Result 187 k/mm3 (150-375); Red Blood Count 2.69 M/mm3 (4.2-5.4); Red Cell Distribution Width 16.2 % (11.5-14.5); White Blood Count 6.5 K/mm3 (4.5-10.0)
[2019-11-23 05:42] LABS: Albumin Level 2.8 g/dL (3.5-5.1); Blood Urea Nitrogen 57 mg/dL (7-17); Calcium 8.3 mg/dL (8.4-10.2); Carbon Dioxide 18 mmol/L (22-30); Chloride 109 mmol/L (98-107); Estimated CRCL calculation 15 ml/min; Estimated Glomerular Filt Rate 12; Glucose 99 mg/dL (65-105); Phosphorus 5.6 mg/dL (2.5-4.5); Potassium 4.2 mmol/L (3.4-5.0); Sodium 141 mmol/L (137-145)
[2019-11-23 06:28] LABS: Glucose Point of Care 99 (65-105)
[2019-11-23] MEDS: HYDROCORTISONE 1% 30 GM OINTMENT 1 APPLIC TOPICAL ×2 (08:24→20:47)
[2019-11-23] MEDS: TOLNAFTATE 1% POWDER 45 GM BTL 1 APPLIC TOPICAL ×2 (08:24→20:46)
[2019-11-23] MEDS: metOLazone 5 MG TABLET PO (08:24)
[2019-11-23] MEDS: BUMETANIDE INJ 2.5 MG/10 ML VIAL 2 MG IV PUSH ×3 (08:24→16:24)
[2019-11-23] MEDS: DEXTROSE 10% 1,000 ML 100 ML IV CONT ×2 (09:52→20:46)
[2019-11-23 12:09] LABS: Glucose Point of Care 115 (65-105)
--- NOTE | 2019-11-23 14:48 | PCPTNOTE ---
Attempted to see this patient this afternoon...family present for 'priors', but pt was unable to wake up sufficiently to participate in therapy...will see tomorrow as appropriate...SEE IN THE A.M. IF POSSIBLE
--- NOTE | 2019-11-23 15:00 | PM.PNNEP ---
Progress Note: A&P Assessment and Plan (1) Acute renal failure: Qualifiers: Acute renal failure type: unspecified Qualified Code(s): N17.9 - Acute kidney failure, unspecified Code(s): N17.9 - Acute kidney failure, unspecified Status: Acute Assessment and Plan: etiology unclear urine electrolytes suggest prerenal azotemia (in spite of clear evidence of volume overload) UA suggestive of an UTI -- contributing to acute renal dysfunction?? renal ultrasound unremarkable creatinine relatively stable (2) Chronic kidney disease, stage 3: Code(s): N18.3 - Chronic kidney disease, stage 3 (moderate) Status: Acute Assessment and Plan: baseline creatinine ~ 1.1 - 1.2mg/dl secondary ot HTN, vascular disease and age (3) Anasarca: Code(s): R60.1 - Generalized edema Status: Acute Assessment and Plan: significant issue at this time poor response to IV diuretics changed bumex to tid dosing with addition of metolazone - better urine output with stability in creatinine at this time (4) HTN (hypertension): Code(s): I10 - Essential (primary) hypertension Status: Chronic Assessment and Plan: reasonable control at this time given #1, do not want to overcontrol it follow trend of hemodynamics (5) Anemia: Code(s): D64.9 - Anemia, unspecified Status: Chronic Assessment and Plan: presumably related to BLOSSOM, CKD, and acute illness follow trend of H/H consider empiric Epogen (6) UTI (urinary tract infection): Code(s): N39.0 - Urinary tract infection, site not specified Status: Acute Assessment and Plan: UA highly suggestive follow culture results started on antibiotics Will continue to follow. Subjective Date/time seen: 11/23/19 15:00 Sleeping comfortably at the time of my visit although difficult to wake up -- per nursing, mentation has significantly improved since yesterday with patient able to converse appropriately; better urine output noted as well. Exam Narrative: Exam Narrative: General: WD/WN female in NAD Heart: normal S1 and S2; no rub Lungs: decreased at the bases Abdomen: soft, nontender, nondistended, positive bowel sounds Extremities: no cyanosis or clubbing; 2 - 3+ edema Skin: warm and dry Objective Data Vital Signs Vital Signs: Vital Signs Temp Pulse Resp BP Pulse Ox 11/23/19 14:26 54 L 11/23/19 12:00 36.0 C L 66 16 115/39 L 100 11/23/19 10:00 57 L 11/23/19 08:00 36.1 C L 56 L 12 111/46 L 93 11/23/19 06:00 62 11/23/19 04:00 36.2 C L 54 L 22 H 112/46 L 100 11/23/19 02:00 60 11/23/19 00:00 65 20 98 11/22/19 23:44 36.1 C L 56 L 20 133/34 L 98 11/22/19 21:52 66 11/22/19 20:00 36.3 C L 75 18 134/43 L 100 11/22/19 18:00 67 11/22/19 16:40 36.7 C 69 16 115/76 100 11/22/19 16:20 74 Intake/Output Intake/Output: Intake & Output 11/20/19 11/21/19 11/22/19 11/23/19 23:59 23:59 23:59 23:59 Intake Total 120 2137 2138 1120 Output Total 40 850 725 Balance 120 2097 1288 395 Meds/Results Medications: Active Medications Generic Name Dose Route Start Last Admin Trade Name Freq PRN Reason Stop Dose Admin Hydrocodone Bitart/Acetaminophen 1 tab 11/20/19 14:20 11/20/19 20:57 [place] 5-325 Mg PO 1 tab Q4H PRN Administration Pain Rated 4-6 Bumetanide 2 mg 11/22/19 15:00 11/23/19 13:04 Bumex Inj IV PUSH 2 mg TID DOROTHY Administration Dextrose 12.5 gm 11/21/19 02:58 11/22/19 02:29 Dextrose 50% Syringe IV PUSH 12.5 gm PRN PRN Administration Hypoglycemia Protocol Glucagon 1 mg 11/21/19 02:58 11/22/19 05:26 Glucagon For Inj IM 1 mg PRN PRN Administration Hypoglycemia Protocol Glucose 15 gm 11/21/19 02:58 11/21/19 10:51 Glutose 15 PO 15 gm PRN PRN Administration Hypoglycemia Protocol
--- NOTE | 2019-11-23 15:59 | PM.IMPN ---
Progress Note: A&P Assessment and Plan (1) Acute renal failure: Qualifiers: Acute renal failure type: unspecified Qualified Code(s): N17.9 - Acute kidney failure, unspecified Code(s): N17.9 - Acute kidney failure, unspecified Status: Acute Assessment and Plan: Pt is on diuretics, pt is edematous, US renal completed, creat is over 3, consult nephrology. pass catheter monitor UO. Continue to monitor creat. Pt may benefit from dialysis, continue to monitor creatinine. creat @3 baseline is 1 (2) Anemia: Code(s): D64.9 - Anemia, unspecified Status: Chronic Assessment and Plan: Most likely is chronic. (3) HTN (hypertension): Code(s): I10 - Essential (primary) hypertension Status: Chronic Assessment and Plan: Continue lasix hold other BP medications (4) Arm edema: Code(s): R60.0 - Localized edema Status: Acute Assessment and Plan: Doppler was performed to the left upper extremity which was negative for any DVT. Could this possibly SVC syndrome? Rpt US of upper ext. lower ext is negative. ? dependant edema from neglect on that side from old stroke (5) Hypoglycemia: Code(s): E16.2 - Hypoglycemia, unspecified Status: Acute Assessment and Plan: Continue to monitor blood sugars. Check cortisol level. Could she have some adrenal insufficiency? (6) UTI (urinary tract infection): Code(s): N39.0 - Urinary tract infection, site not specified Status: Acute Assessment and Plan: pt has a UTi treat with iv rocephin pt to have blood cultures drawn ? sepsis, bc negative to date (7) CVA (cerebral vascular accident): Code(s): I63.9 - Cerebral infarction, unspecified Status: Acute Assessment and Plan: CT brain showed vasogenic edema MRI shows old infarcts only, carotids negative, echo negative Subjective Date/time seen: 11/23/19 15:59 Interval history: 73 year old female who resides at [facility]. The patient stated that she has been having some swelling to her left upper arm. She has had a previous stroke in the past that affected her left side but she does not recall her arm being like this before. Pt is a poor historian appears tired and malaise. Holding some conversation. Pt looks swollen all over. potassium is 4.5, creat is 3.9. US renal is normal, no hydronephrosis. Venous dopplers are negative. History of CVA and HTN. Son by her bedside, explains that she did have dialysis in the past. daughter in law mentions some lumps in her breasts, I explained she can have a US of breasts later. Pt may benefit from dialysis, continue to watch. Pt looks much improved today. More alert holding conversation, feels hungry. Can feed pt and restart her oral medications. Pt had stat CT head which showed subacute stroke, UA is positive for UTI , UC is pending. Review of Systems Review of Systems: All systems reviewed & are unremarkable except as noted in HPI and below Exam Const: General: alert and awake (holding conversation ) Nutritional Appearance: average body habitus and overweight Orientation/consciousness: oriented to person and oriented to place Limitations: no limitations Chest: Chest palpation & inspection: normal inspection of the chest Resp: Effort & Inspection: normal respiratory effort Auscultation: clear to auscultation bilaterally Percussion: percussion normal Cardio: Palpation: normal PMI Rate: regular rate Rhythm: regular rhythm Heart sounds: S1 normal heart sound present and S2 normal heart sound present Peripheral pulses: Peripheral pulses 2+ throughout GI: Inspection: normal to inspection Auscultation: normal bowel sounds Rectal Exam: deferred Neuro: General: oriented to person and oriented to place Cranial nerves: Yes Equal, round and reactive pupils present and Yes Normal hearing present Cognition (Neuro): normal cognition Speech: normal speech Gait exam (Beverley
--- NOTE | 2019-11-23 16:19 | PCOTNOTE ---
Attempted to see this patient this afternoon...family present for PLOF but pt was unable to wake up sufficiently to participate in therapy...will see tomorrow as appropriate...SEE IN THE A.M. IF POSSIBLE
[2019-11-23] MEDS: AMLODIPINE BESYLATE 5 MG TABLET 10 MG PO (16:45)
[2019-11-23 16:54] LABS: Glucose Point of Care 94 (65-105)
[2019-11-23 20:25] LABS: Glucose Point of Care 145 (65-105)
[2019-11-24] VITALS (13 sets, daily range): BP systolic 113–132; BP diastolic 38–63; PULSE 52–73; RESP 12–20; TEMP 35.7–36.6; O2SAT 95–100
[2019-11-24 05:04] LABS: Hematocrit 25.3 % (37.0-47.0); Mean Corpuscular HGB Conc 31.6 g/dl (32-36); Mean Corpuscular Hemoglobin 29.6 pg (26-34); Mean Corpuscular Volume 93.7 fl (80-100); Mean Platelet Volume 12.2 fl (7.4-10.4); Platelet Count Result 205 k/mm3 (150-375); Red Cell Distribution Width 15.8 % (11.5-14.5); White Blood Count 8.2 K/mm3 (4.5-10.0)
[2019-11-24 05:19] LABS: Albumin Level 2.7 g/dL (3.5-5.1); Blood Urea Nitrogen 54 mg/dL (7-17); Calcium 8.6 mg/dL (8.4-10.2); Carbon Dioxide 21 mmol/L (22-30); Chloride 108 mmol/L (98-107); Estimated CRCL calculation 17 ml/min; Estimated Glomerular Filt Rate 14; Glucose 123 mg/dL (65-105); Phosphorus 5.7 mg/dL (2.5-4.5); Potassium 3.9 mmol/L (3.4-5.0); Sodium 136 mmol/L (137-145)
--- NOTE | 2019-11-24 06:19 | CONS_ITS ---
DATE OF CONSULTATION: A 73-year-old right-handed female has been admitted to [facility] through the emergency room. The patient resides at [facility]. She came to the emergency room for the complaint of swelling of the left upper extremity. In addition, she had a history of previous stroke that affected her left side. She additionally had a scar on her left wrist, as she was unsure what happened there. She has not walked since she had the stroke. She gave no history of recent fall. She was recently hospitalized at [facility] and . She had been receiving Lasix over the last 5 days due to increasing edema of the lower extremities. She had the ultrasound on the left arm, which was negative for DVT. Her blood sugar was noted to be 59 and she received D50. She has not been drinking as much. She was also complaining of itching and she was started on the IV fluids when she came to the hospital. As per the further information, she has no additional complaint, but in the past, she has ongoing history of: 1. Anemia. 2. Left hemiparesis. 3. Hypertension. 4. Left wrist surgery. 5. History of hernial repair. SOCIAL HISTORY: She has never smoker, never drinker. MEDICATIONS: She was taking medication as follows: 1. Mucinex 600 b.i.d. 2. Amlodipine 10 mg daily. 3. Amoxicillin potassium clavulanate 1 tablet twice a day. 4. Famotidine 20 mg daily. 5. Ferrous sulfate 325 mg twice a day. 6. Furosemide 20 mg daily. 7. Loratadine 10 mg daily. ALLERGIES: SHE IS NOT ALLERGIC TO ANY MEDICATION. PHYSICAL EXAMINATION: VITAL SIGNS: On evaluation, she was found to be afebrile with pulse of 55, which was later on recorded 93, respirations 16, blood pressure 151/92, most recent 104/35, pulse ox 99%. GENERAL: Examination reveal her to be awake, alert, cooperative, in no obvious acute distress. HEENT: Head normocephalic with no cranial bruit. Ear, nose, throat examination normal. NECK: Supple with no cervical bruit. No thyromegaly. No lymphadenopathy. HEART: Regular. LUNGS: Clear with no rhonchi or crepitation. ABDOMEN: Soft with normal bowel sounds. No tenderness. SKIN: Normal. NEUROLOGICAL: Awake, alert, oriented. Her speech not dysphasic, no dysarthric. Cranial nerve examination is normal. Motor examination revealed her to have no obvious abnormalities. Evaluation up until now documented normal CBC, normal basic metabolic panel, negative venous ultrasound. MRI of the brain, old infarct involving the left temporooccipital region, left frontoparietal region and right frontal lobe. Carotid Doppler study showed less than 50% stenosis bilaterally. Head CT scan again documenting the vasogenic edema in the left parietal lobe when she came, but there was no evidence of hemorrhage, and it was followed by the MRI of the brain, which revealed the left temporooccipital region, frontoparietal and right frontal lobe white matter involvement. Renal ultrasound normal. No hydronephrosis as mentioned above. Venous Doppler study negative and chest CT scan with mild pulmonary edema, pleural effusion, cardiomegaly, small sliding hiatal hernia. An echocardiogram and large left ventricle, left atrial chamber, also right atrial chamber, calcified mitral wall annulus and mild mitral wall regurgitation and tricuspid regurgitation and pulmonic regurgitation. At this stage, the patient is receiving amlodipine, Augmentin, ferrous sulfate, furosemide, Mucinex, and Tylenol. She is not allergic to any medication. I will add aspirin and further adjustment will be made accordingly. MACI ARANGO M.D. CUSTOMER INSIGHT ANALYST CUSTOMER INSIGHT ANALYST D
[2019-11-24] MEDS: DEXTROSE 10% 1,000 ML 100 ML IV CONT ×2 (06:25→18:15)
[2019-11-24 07:39] LABS: Glucose Point of Care 114 (65-105)
--- NOTE | 2019-11-24 08:42 | WPDCDIQUERY2 ---
CDI Query Clarification Request - CT brain showed vasogenic edema MRI shows old infarcts only documented by Dr Haas Coders cannot code CT brain findings. If you agree with CT findings of vasogenic edema, please document as a diagnosis. <Dasia Martini RN - Last Filed: 11/24/19 08:49>
[2019-11-24] MEDS: BUMETANIDE INJ 2.5 MG/10 ML VIAL 2 MG IV PUSH ×3 (09:14→18:11)
[2019-11-24] MEDS: AMLODIPINE BESYLATE 5 MG TABLET 10 MG PO (09:14)
[2019-11-24] MEDS: ASPIRIN 325 MG TABLET PO (09:14)
[2019-11-24] MEDS: metOLazone 5 MG TABLET PO (09:14)
[2019-11-24] MEDS: TOLNAFTATE 1% POWDER 45 GM BTL 1 APPLIC TOPICAL ×2 (09:15→21:09)
[2019-11-24] MEDS: HYDROCORTISONE 1% 30 GM OINTMENT 1 APPLIC TOPICAL ×2 (09:15→21:09)
[2019-11-24 12:16] LABS: Glucose Point of Care 114 (65-105)
--- NOTE | 2019-11-24 15:50 | PC.NURSE ---
This patient, Maryann Velasquez, was transferred to [[id number]] on 11/24/19 at 1550. Personal belongings sent with patient. Belongings list checked and signed with receiving [ ]. Report given to [Alreen GOMES]. Appropriate documentation sent with patient.
--- NOTE | 2019-11-24 16:20 | PM.IMPN ---
Progress Note: A&P Assessment and Plan (1) Acute renal failure: Qualifiers: Acute renal failure type: unspecified Qualified Code(s): N17.9 - Acute kidney failure, unspecified Code(s): N17.9 - Acute kidney failure, unspecified Status: Acute Assessment and Plan: Patient with acute on chronic kidney disease kidney ultrasound is normal no hydronephrosis, will consult health management consultant for further recommendation (2) Anemia: Code(s): D64.9 - Anemia, unspecified Status: Chronic Assessment and Plan: Most likely is chronic. (3) HTN (hypertension): Code(s): I10 - Essential (primary) hypertension Status: Chronic Assessment and Plan: Continue lasix hold other BP medications (4) Arm edema: Code(s): R60.0 - Localized edema Status: Acute Assessment and Plan: Doppler was performed to the left upper extremity which was negative for any DVT. Could this possibly SVC syndrome? Rpt US of upper ext. lower ext is negative. ? dependant edema from neglect on that side from old stroke (5) Hypoglycemia: Code(s): E16.2 - Hypoglycemia, unspecified Status: Acute Assessment and Plan: Continue to monitor blood sugars. Check cortisol level. Could she have some adrenal insufficiency? (6) UTI (urinary tract infection): Code(s): N39.0 - Urinary tract infection, site not specified Status: Acute Assessment and Plan: pt has a UTi treat with iv rocephin pt to have blood cultures drawn ? sepsis, bc negative to date (7) CVA (cerebral vascular accident): Code(s): I63.9 - Cerebral infarction, unspecified Status: Acute Assessment and Plan: CT brain showed vasogenic edema MRI shows old infarcts only, carotids negative, echo negative (8) Vasogenic cerebral edema: Code(s): G93.6 - Cerebral edema Status: Acute Assessment and Plan: CT scan of the head shows vasogenic edema however there is no bleeding MRI of the brain did not show any similar finding, patient is seen by neurologist Subjective Date/time seen: 11/24/19 16:20 3 year old female who resides at [facility]. The patient stated that she has been having some swelling to her left upper arm. She has had a previous stroke in the past that affected her left side but she does not recall her arm being like this before. Pt is a poor historian appears tired and malaise. Holding some conversation. Pt looks swollen all over. potassium is 4.5, creat is 3.9. US renal is normal, no hydronephrosis. Venous dopplers are negative. History of CVA and HTN, explains that she did have dialysis in the past. Pt may benefit from dialysis, continue to watch. Pt looks much improved today. More alert holding conversation, eating her breakfast. CT scan of the head shows vasogenic edema however there is no bleeding MRI of the brain did not show any similar finding, today patient states her left arm is much improved venous Doppler was negative for DVT, patient denies any chest pain or shortness of breath, patient clinically stable continue to monitor Review of Systems Review of Systems: All systems reviewed & are unremarkable except as noted in HPI and below Exam Narrative: Exam Narrative: Elderly frail Const: General: comfortable and no acute distress HENMT: General nose exam: Normal nares present Mouth: Yes moist mucous membranes Eyes: General: appearance normal, both eyes and all related structures Sclera: sclerae normal Neck: Neck: supple Resp: Effort & Inspection: normal respiratory effort Auscultation: clear to auscultation bilaterally Cardio: Rate: regular rate Rhythm: regular rhythm GI: Auscultation: normal bowel sounds Skin: General skin exam: normal color and no rashes or lesions noted Neuro: Other: Patient still somewhat confused Extrem: General: normal to inspection Psych: Affect: Anxious affect present Objective Data Stephanie
--- NOTE | 2019-11-24 17:02 | P.PNNP_ITS ---
Progress Note: A&P Assessment and Plan (1) Acute renal failure: Qualifiers: Acute renal failure type: unspecified Qualified Code(s): N17.9 - Acute kidney failure, unspecified Code(s): N17.9 - Acute kidney failure, unspecified Status: Acute Assessment and Plan: * etiology unclear * urine electrolytes suggest prerenal azotemia (in spite of clear evidence of volume overload) * UA suggestive of an UTI -- contributing to acute renal dysfunction?? * renal ultrasound unremarkable * creatinine is slowly better, 3.9 to 3.6 to 3.2 today. (2) Chronic kidney disease, stage 3: Code(s): N18.3 - Chronic kidney disease, stage 3 (moderate) Status: Acute Assessment and Plan: * baseline creatinine ~ 1.1 - 1.2mg/dl * secondary ot HTN, vascular disease and age (3) Anasarca: Code(s): R60.1 - Generalized edema Status: Acute Assessment and Plan: * significant issue at this time * She is getting diuretics, but urine output is not great. * The albumin is not low enough to need supplemental albumin. (4) HTN (hypertension): Code(s): I10 - Essential (primary) hypertension Status: Chronic Assessment and Plan: * This is doing well. (5) Anemia: Code(s): D64.9 - Anemia, unspecified Status: Chronic Assessment and Plan: * presumably related to BLOSSOM, CKD, and acute illness * follow trend of H/H * consider empiric Epogen (6) UTI (urinary tract infection): Code(s): N39.0 - Urinary tract infection, site not specified Status: Acute Assessment and Plan: * UA highly suggestive * follow culture results * started on antibiotics Will continue to follow. Additional Plan Subjective Date/time seen: 11/24/19 17:02 Interval history: Patient is sleepy but feels okay. No chest pain or shortness of breath Review of Systems Cardiovascular: Cardiovascular: Reports no additional cardiovascular complaints Respiratory: Respiratory: Reports no additional respiratory complaints Gastrointestinal: Gastrointestinal: Reports no additional gastrointestinal complaints Genitourinary: Genitourinary: Reports no additional female genitourinary complaints Exam Narrative: Exam Narrative: General: WD/WN female in NAD Heart: normal S1 and S2; no rub or gallop Lungs: decreased at the bases Abdomen: soft, nontender, nondistended, positive bowel sounds Extremities: no cyanosis or clubbing; 2 - 3+ edema Skin: warm and dry without rash Objective Data Vital Signs Vital Signs: Vital Signs - 24 hr 11/23/19 18:10 11/23/19 18:34 11/23/19 20:00 Temperature 36.1 C L Pulse Rate 76 62 59 L Respiratory Rate 16 Blood Pressure 106/33 L Pulse Oximetry 100 11/23/19 22:00 11/23/19 23:26 11/24/19 00:00 Temperature 36.8 C Pulse Rate 74 72 61 Respiratory Rate 22 H Blood Pressure 119/43 L Pulse Oximetry 100 11/24/19 02:00 11/24/19 04:00 11/24/19 06:00 Temperature 36.6 C Pulse Rate 70 64 63 Respiratory Rate 18 Blood Pressure 115/44 L Pulse Oximetry 99 11/24/19 08:00 11/24/19 10:00 11/24/19 12:00 Temperature 36.3 C L 35.9 C L Pulse R
--- NOTE | 2019-11-24 17:02 | PM.PNNEP ---
Progress Note: A&P Assessment and Plan (1) Acute renal failure: Qualifiers: Acute renal failure type: unspecified Qualified Code(s): N17.9 - Acute kidney failure, unspecified Code(s): N17.9 - Acute kidney failure, unspecified Status: Acute Assessment and Plan: etiology unclear urine electrolytes suggest prerenal azotemia (in spite of clear evidence of volume overload) UA suggestive of an UTI -- contributing to acute renal dysfunction?? renal ultrasound unremarkable creatinine is slowly better, 3.9 to 3.6 to 3.2 today. (2) Chronic kidney disease, stage 3: Code(s): N18.3 - Chronic kidney disease, stage 3 (moderate) Status: Acute Assessment and Plan: baseline creatinine ~ 1.1 - 1.2mg/dl secondary ot HTN, vascular disease and age (3) Anasarca: Code(s): R60.1 - Generalized edema Status: Acute Assessment and Plan: significant issue at this time She is getting diuretics, but urine output is not great. The albumin is not low enough to need supplemental albumin. (4) HTN (hypertension): Code(s): I10 - Essential (primary) hypertension Status: Chronic Assessment and Plan: This is doing well. (5) Anemia: Code(s): D64.9 - Anemia, unspecified Status: Chronic Assessment and Plan: presumably related to BLOSSOM, CKD, and acute illness follow trend of H/H consider empiric Epogen (6) UTI (urinary tract infection): Code(s): N39.0 - Urinary tract infection, site not specified Status: Acute Assessment and Plan: UA highly suggestive follow culture results started on antibiotics Will continue to follow. Additional Plan Subjective Date/time seen: 11/24/19 17:02 Interval history: Patient is sleepy but feels okay. No chest pain or shortness of breath Review of Systems Cardiovascular: Cardiovascular: Reports no additional cardiovascular complaints Respiratory: Respiratory: Reports no additional respiratory complaints Gastrointestinal: Gastrointestinal: Reports no additional gastrointestinal complaints Genitourinary: Genitourinary: Reports no additional female genitourinary complaints Exam Narrative: Exam Narrative: General: WD/WN female in NAD Heart: normal S1 and S2; no rub or gallop Lungs: decreased at the bases Abdomen: soft, nontender, nondistended, positive bowel sounds Extremities: no cyanosis or clubbing; 2 - 3+ edema Skin: warm and dry without rash Objective Data Vital Signs Vital Signs: Vital Signs - 24 hr 11/23/19 18:10 11/23/19 18:34 11/23/19 20:00 Temperature 36.1 C L Pulse Rate 76 62 59 L Respiratory Rate 16 Blood Pressure 106/33 L Pulse Oximetry 100 11/23/19 22:00 11/23/19 23:26 11/24/19 00:00 Temperature 36.8 C Pulse Rate 74 72 61 Respiratory Rate 22 H Blood Pressure 119/43 L Pulse Oximetry 100 11/24/19 02:00 11/24/19 04:00 11/24/19 06:00 Temperature 36.6 C Pulse Rate 70 64 63 Respiratory Rate 18 Blood Pressure 115/44 L Pulse Oximetry 99 11/24/19 08:00 11/24/19 10:00 11/24/19 12:00 Temperature 36.3 C L 35.9 C L Pulse Rate 73 69 60 Respiratory Rate 12 20 Blood Pressure 132/44 L 116/63 Pulse Oximetry 96 100 11/24/19 14:00 Temperature Pulse Rate 60 Respiratory Rate Blood Pressure Pulse Oximetry Intake/Output Intake/Output: Intake & Output 11/21/19 11/22/19 11/23/19 11/24/19 23:59 23:59 23:59 23:59 Intake Total 2137 2138 2510 1730 Output Total 40 850 1950 1975 Balance 2098 8066 378 -383 Meds/Results Medications: Active Medications Generic Name Dose Route Start Last Admin Trade Name Freq PRN Reason Stop Dose Admin Hydrocodone Bitart/Acetaminophen 1 tab 11/20/19 14:20 11/20/19 20:57 [place] 5-325 Mg PO 1 tab Q4H PRN Administration Pain Rated 4-6 Amlodipine Besylate 10 mg 11/23/19 16:25 11/24/19 09:14 Norvasc PO 10 mg DAILY DOROTHY Admini
[2019-11-24 18:19] LABS: Glucose Point of Care 98 (65-105)
--- NOTE | 2019-11-24 19:38 | PC.NURSE ---
This patient, Maryann Velasquez, was received from [facility] [ ] on 11/24/19 at 1522. Personal belongings list checked and signed. Patient/family oriented to unit policies and routines
[2019-11-24 20:22] LABS: Glucose Point of Care 108 (65-105)
[2019-11-25 00:44] VITALS: PULSE 52; RESP 18; O2SAT 99
[2019-11-25] MEDS: DEXTROSE 10% 1,000 ML 100 ML IV CONT ×2 (05:08→16:05)
[2019-11-25 06:00] VITALS: BP 137/49; PULSE 60; RESP 18; TEMP 35.8; O2SAT 97
[2019-11-25 06:22] LABS: Albumin Level 2.8 g/dL (3.5-5.1); Blood Urea Nitrogen 48 mg/dL (7-17); Calcium 8.4 mg/dL (8.4-10.2); Carbon Dioxide 21 mmol/L (22-30); Chloride 101 mmol/L (98-107); Estimated CRCL calculation 18 ml/min; Estimated Glomerular Filt Rate 16; Glucose 105 mg/dL (65-105); Phosphorus 5.4 mg/dL (2.5-4.5); Potassium 3.7 mmol/L (3.4-5.0); Sodium 133 mmol/L (137-145)
[2019-11-25 07:54] LABS: Glucose Point of Care 125 (65-105)
[2019-11-25 09:28] VITALS: O2SAT 97
--- NOTE | 2019-11-25 09:28 | P.PNNP_ITS ---
Progress Note: A&P Assessment and Plan (1) Acute renal failure: Qualifiers: Acute renal failure type: unspecified Qualified Code(s): N17.9 - Acute kidney failure, unspecified Code(s): N17.9 - Acute kidney failure, unspecified Status: Acute Assessment and Plan: * etiology unclear * urine electrolytes suggest prerenal azotemia * She has a bladder infection but blood cultures were negative. * She has about 750 of protein per g of creatinine * renal ultrasound unremarkable * Perhaps she was pre renal/intravascularly volume depleted because she was not eating and also was receiving Lasix for 5 days before she came in. * However she exhibits signs of volume overload also. * creatinine is slowly better, 3.9 to 3.6 to 3.2 to 2.9 today. * I think we can cut back on her diuretics. (2) Chronic kidney disease, stage 3: Code(s): N18.3 - Chronic kidney disease, stage 3 (moderate) Status: Acute Assessment and Plan: * baseline creatinine ~ 1.1 - 1.2mg/dl * secondary ot HTN, vascular disease and age (3) Anasarca: Code(s): R60.1 - Generalized edema Status: Acute Assessment and Plan: * Doing better. * Cutting back on the diuretics (4) HTN (hypertension): Code(s): I10 - Essential (primary) hypertension Status: Chronic Assessment and Plan: * This is doing well. (5) Anemia: Code(s): D64.9 - Anemia, unspecified Status: Chronic Assessment and Plan: * presumably related to BLOSSOM, CKD, and acute illness * follow trend of H/H * consider empiric Epogen (6) UTI (urinary tract infection): Code(s): N39.0 - Urinary tract infection, site not specified Status: Acute Assessment and Plan: * UA highly suggestive * Cultures are negative. WBC is normal in the blood. * On ceftriaxone. * Will repeat the urinalysis Additional Plan Subjective Date/time seen: 11/25/19 09:28 Interval history: Patient is awake today. She is getting physical therapy. No swelling. No chest pain or shortness of breath Review of Systems Cardiovascular: Cardiovascular: Reports no additional cardiovascular complaints Respiratory: Respiratory: Reports no additional respiratory complaints Gastrointestinal: Gastrointestinal: Reports no additional gastrointestinal complaints Genitourinary: Genitourinary: Reports no additional female genitourinary complaints Exam Narrative: Exam Narrative: General: WD/WN female in NAD Heart: normal S1 and S2; no rub or gallop Lungs: Symmetric and mildly decreased at the bases. Abdomen: soft, nontender, nondistended, positive bowel sounds Extremities: 1+ edema Skin: w no rash Objective Data Vital Signs Vital Signs: Vital Signs - 24 hr 11/24/19 10:00 11/24/19 12:00 11/24/19 14:00 Temperature 35.9 C L Pulse Rate 69 60 60 Respiratory Rate 20 Blood Pressure 116/63 Pulse Oximetry 100 11/24/19 15:22 11/24/19 16:00 11/24/19 16:30 Temperature 36.1 C L Pulse Rate 52 L 63 63 Respiratory Rate 16 16 Blood Pressure 113/50 L Pulse Oximetry 95 95 11/24/19 20:30 11/24/19 22:00 11/25/19 00:44 Temperature 35.7 C L Pulse Rate 60 52 L 52 L Respirator
--- NOTE | 2019-11-25 09:28 | PM.PNNEP ---
Progress Note: A&P Assessment and Plan (1) Acute renal failure: Qualifiers: Acute renal failure type: unspecified Qualified Code(s): N17.9 - Acute kidney failure, unspecified Code(s): N17.9 - Acute kidney failure, unspecified Status: Acute Assessment and Plan: etiology unclear urine electrolytes suggest prerenal azotemia She has a bladder infection but blood cultures were negative. She has about 750 of protein per g of creatinine renal ultrasound unremarkable Perhaps she was pre renal/intravascularly volume depleted because she was not eating and also was receiving Lasix for 5 days before she came in. However she exhibits signs of volume overload also. creatinine is slowly better, 3.9 to 3.6 to 3.2 to 2.9 today. I think we can cut back on her diuretics. (2) Chronic kidney disease, stage 3: Code(s): N18.3 - Chronic kidney disease, stage 3 (moderate) Status: Acute Assessment and Plan: baseline creatinine ~ 1.1 - 1.2mg/dl secondary ot HTN, vascular disease and age (3) Anasarca: Code(s): R60.1 - Generalized edema Status: Acute Assessment and Plan: Doing better. Cutting back on the diuretics (4) HTN (hypertension): Code(s): I10 - Essential (primary) hypertension Status: Chronic Assessment and Plan: This is doing well. (5) Anemia: Code(s): D64.9 - Anemia, unspecified Status: Chronic Assessment and Plan: presumably related to BLOSSOM, CKD, and acute illness follow trend of H/H consider empiric Epogen (6) UTI (urinary tract infection): Code(s): N39.0 - Urinary tract infection, site not specified Status: Acute Assessment and Plan: UA highly suggestive Cultures are negative. WBC is normal in the blood. On ceftriaxone. Will repeat the urinalysis Additional Plan Subjective Date/time seen: 11/25/19 09:28 Interval history: Patient is awake today. She is getting physical therapy. No swelling. No chest pain or shortness of breath Review of Systems Cardiovascular: Cardiovascular: Reports no additional cardiovascular complaints Respiratory: Respiratory: Reports no additional respiratory complaints Gastrointestinal: Gastrointestinal: Reports no additional gastrointestinal complaints Genitourinary: Genitourinary: Reports no additional female genitourinary complaints Exam Narrative: Exam Narrative: General: WD/WN female in NAD Heart: normal S1 and S2; no rub or gallop Lungs: Symmetric and mildly decreased at the bases. Abdomen: soft, nontender, nondistended, positive bowel sounds Extremities: 1+ edema Skin: w no rash Objective Data Vital Signs Vital Signs: Vital Signs - 24 hr 11/24/19 10:00 11/24/19 12:00 11/24/19 14:00 Temperature 35.9 C L Pulse Rate 69 60 60 Respiratory Rate 20 Blood Pressure 116/63 Pulse Oximetry 100 11/24/19 15:22 11/24/19 16:00 11/24/19 16:30 Temperature 36.1 C L Pulse Rate 52 L 63 63 Respiratory Rate 16 16 Blood Pressure 113/50 L Pulse Oximetry 95 95 11/24/19 20:30 11/24/19 22:00 11/25/19 00:44 Temperature 35.7 C L Pulse Rate 60 52 L 52 L Respiratory Rate 18 18 18 Blood Pressure 113/38 L Pulse Oximetry 95 99 99 11/25/19 06:00 Temperature 35.8 C L Pulse Rate 60 Respiratory Rate 18 Blood Pressure 137/49 L Pulse Oximetry 97 Intake/Output Intake/Output: Intake & Output 11/22/19 11/23/19 11/24/19 11/25/19 23:59 23:59 23:59 23:59 Intake Total 2138 2510 2730 1120 Output Total 850 1950 2675 1300 Balance 1288 560 55 -180 Meds/Results Medications: Active Medications Generic Name Dose Route Start Last Admin Trade Name Freq PRN Reason Stop Dose Admin Hydrocodone Bitart/Acetaminophen 1 tab 11/20/19 14:20 11/20/19 20:57 [place] 5-325 Mg PO 1 tab Q4H PRN Administration Pain Rated 4-6 Aspirin 325 mg 11/24/19 08:00 11/24/19 09:14 Aspirin PO
[2019-11-25] MEDS: ASPIRIN 325 MG TABLET PO (10:08)
[2019-11-25] MEDS: TOLNAFTATE 1% POWDER 45 GM BTL 1 APPLIC TOPICAL ×2 (10:09→21:28)
[2019-11-25] MEDS: HYDROCORTISONE 1% 30 GM OINTMENT 1 APPLIC TOPICAL ×2 (10:09→21:27)
[2019-11-25 10:16] LABS: Immature Reticulocyte Fraction 14.3 % (3.0-15.9); Reticulocyte Hemoglobin Conten 31.2 pg (28.2-35.7); Reticulocyte Percent 1.32 % (0.7-4.3); Reticulocytes Absolute 0.04 B/L (32.2-175.7)
[2019-11-25 10:33] LABS: Iron 90 ug/dL (37-170)
[2019-11-25 10:42] LABS: Percent Iron Saturation 29 % (20-50)
[2019-11-25 11:41] LABS: Add Urine Microscopic? YES; Appearance Urine Cloudy (Clear); Bacteria Urine Trace /hpf; Bilirubin Urine Negative (Negative); Blood Urine 2+ (Negative); Budding Yeast Urine Present /hpf; Color Urine Straw (Yellow); Glucose Urine UA Negative (Negative); Ketones Urine Negative (Negative); Leukocyte Esterase Ur 3+ LEU/UL (NEGATIVE); Mucus Urine Rare /lpf; Nitrate Urine Negative (Negative); Protein Urine 2+ mg/dL (Negative); RBC Urine 21-50 /hpf (0-2); Specific Grav Ur 1.009 (1.001-1.035); Squamous Epithelial Cell Urine Rare /hpf (Few); Urobilinogen Urine Negative mg/dL (<2.0); WBC Urine >75 /hpf (0-3)
[2019-11-25 11:55] LABS: Glucose Point of Care 150 (65-105)
[2019-11-25 14:00] VITALS: BP 126/40; PULSE 63; RESP 18; TEMP 35.9; O2SAT 100
--- NOTE | 2019-11-25 15:40 | PM.IMPN ---
Progress Note: A&P Assessment and Plan (1) Acute renal failure: Qualifiers: Acute renal failure type: unspecified Qualified Code(s): N17.9 - Acute kidney failure, unspecified Code(s): N17.9 - Acute kidney failure, unspecified Status: Acute Assessment and Plan: 11/25/19 15:40 74 year old female who resides at [facility]. The patient stated that she has been having some swelling to her left upper arm. She has had a previous stroke in the past that affected her left side but she does not recall her arm being like this before. Pt is a poor historian appears tired and malaise. Holding some conversation. Pt looks swollen all over. potassium is 4.5, creat is 3.9. US renal is normal, no hydronephrosis. Venous dopplers are negative. History of CVA and HTN, explains that she did have dialysis in the past. Pt may benefit from dialysis, continue to watch. Pt looks much improved today. More alert holding conversation, eating her breakfast. CT scan of the head shows vasogenic edema however there is no bleeding MRI of the brain did not show any similar finding, today patient states her left arm is much improved venous Doppler was negative for DVT, most likely patient had dependent edema as patient sits on left arm, instructed to avoid leaning on left arm, today patient is participating with PT, stats doing better, patient denies any chest pain or shortness of breath, patient clinically stable continue to monitor, Patient with CKD her creatinine is trendind down from 3.8 when initially present to 2.9 today and patient is seen by Dr. Barnard. (2) Anemia: Code(s): D64.9 - Anemia, unspecified Status: Chronic Assessment and Plan: Most likely is chronic. (3) HTN (hypertension): Code(s): I10 - Essential (primary) hypertension Status: Chronic Assessment and Plan: Continue lasix hold other BP medications (4) Arm edema: Code(s): R60.0 - Localized edema Status: Acute Assessment and Plan: Doppler was performed to the left upper extremity which was negative for any DVT. Could this possibly SVC syndrome? Rpt US of upper ext. lower ext is negative. ? dependant edema from neglect on that side from old stroke (5) Hypoglycemia: Code(s): E16.2 - Hypoglycemia, unspecified Status: Acute Assessment and Plan: Continue to monitor blood sugars. Check cortisol level. Could she have some adrenal insufficiency? (6) UTI (urinary tract infection): Code(s): N39.0 - Urinary tract infection, site not specified Status: Acute Assessment and Plan: pt has a UTi treat with iv rocephin pt to have blood cultures drawn ? sepsis, bc negative to date (7) CVA (cerebral vascular accident): Code(s): I63.9 - Cerebral infarction, unspecified Status: Acute Assessment and Plan: CT brain showed vasogenic edema MRI shows old infarcts only, carotids negative, echo negative (8) Vasogenic cerebral edema: Code(s): G93.6 - Cerebral edema Status: Acute Assessment and Plan: CT scan of the head shows vasogenic edema however there is no bleeding MRI of the brain did not show any similar finding, patient is seen by neurologist Subjective Date/time seen: 11/25/19 15:40 74 year old female who resides at [facility]. The patient stated that she has been having some swelling to her left upper arm. She has had a previous stroke in the past that affected her left side but she does not recall her arm being like this before. Pt is a poor historian appears tired and malaise. Holding some conversation. Pt looks swollen all over. potassium is 4.5, creat is 3.9. US renal is normal, no hydronephrosis. Venous dopplers are negative. History of CVA and HTN, explains that she did have dialysis in the past. Pt may benefit from dialysis, continue to watch. Pt looks much improved today. More alert holding conversation, sheela
[2019-11-25] MEDS: BUMETANIDE 1 MG TABLET 2 MG PO (16:06)
[2019-11-25 17:13] LABS: Glucose Point of Care 128 (65-105)
[2019-11-25 20:20] VITALS: PULSE 60; RESP 16; O2SAT 96
[2019-11-25 21:47] LABS: Glucose Point of Care 138 (65-105)
[2019-11-25 22:00] VITALS: BP 115/44; PULSE 57; RESP 18; TEMP 35.6; O2SAT 95
[2019-11-26] MEDS: DEXTROSE 10% 1,000 ML 100 ML IV CONT (02:11)
[2019-11-26 04:43] LABS: Osmolality, Urine 352 mOsm/kg (50-1200)
[2019-11-26 06:00] VITALS: BP 120/45; PULSE 61; RESP 18; TEMP 36.1; O2SAT 91
[2019-11-26 06:40] LABS: Albumin Level 2.6 g/dL (3.5-5.1); Blood Urea Nitrogen 44 mg/dL (7-17); Calcium 8.1 mg/dL (8.4-10.2); Carbon Dioxide 22 mmol/L (22-30); Chloride 99 mmol/L (98-107); Estimated CRCL calculation 22 ml/min; Estimated Glomerular Filt Rate 20; Glucose 157 mg/dL (65-105); Phosphorus 4.7 mg/dL (2.5-4.5); Potassium 3.5 mmol/L (3.4-5.0); Sodium 129 mmol/L (137-145)
--- NOTE | 2019-11-26 07:22 | P.PNNP_ITS ---
Progress Note: A&P Assessment and Plan (1) Acute renal failure: Qualifiers: Acute renal failure type: unspecified Qualified Code(s): N17.9 - Acute kidney failure, unspecified Code(s): N17.9 - Acute kidney failure, unspecified Status: Acute Assessment and Plan: * etiology unclear * urine electrolytes suggest prerenal azotemia * She has a bladder infection but blood cultures were negative. * She has about 750 of protein per g of creatinine * renal ultrasound unremarkable for smallish kidneys. * Perhaps she was pre renal/intravascularly volume depleted because she was not eating and also was receiving Lasix for 5 days before she came in. * Currently volume status looks okay. * Diuretics decreased yesterday. * She is getting D10. I will stop this because she is eating now. (2) Chronic kidney disease, stage 3: Code(s): N18.3 - Chronic kidney disease, stage 3 (moderate) Status: Acute Assessment and Plan: * baseline creatinine ~ 1.1 - 1.2mg/dl * secondary ot HTN, vascular disease and age (3) Anasarca: Code(s): R60.1 - Generalized edema Status: Acute Assessment and Plan: * Doing better. * Now on oral Bumex alone. (4) HTN (hypertension): Code(s): I10 - Essential (primary) hypertension Status: Chronic Assessment and Plan: * This is doing well. (5) Anemia: Code(s): D64.9 - Anemia, unspecified Status: Chronic Assessment and Plan: * presumably related to BLOSSOM, CKD, and acute illness * Check a hemoglobin tomorrow * consider empiric Epogen * (6) UTI (urinary tract infection): Code(s): N39.0 - Urinary tract infection, site not specified Status: Acute Assessment and Plan: * UA highly suggestive * Cultures are negative. WBC is normal in the blood. * On ceftriaxone. * Repeat UA still shows pyuria. Will check a urinalysis by straight cathet erization and reflex this to culture. (7) Hypoglycemia: Code(s): E16.2 - Hypoglycemia, unspecified Status: Acute Assessment and Plan: She is eating better now. Cortisol is okay. Stop D10 for now and see how she does. (8) Hyponatremia: Code(s): E87.1 - Hypo-osmolality and hyponatremia Status: Acute Assessment and Plan: Probably due to renal insufficiency plus D 10 W. Stopping the latter. Additional Plan Subjective Date/time seen: 11/26/19 07:22 Interval history: Patient is feeling okay. No shortness of breath. No swelling. No chest pain or shortness of breath Review of Systems Cardiovascular: Cardiovascular: Reports no additional cardiovascular complaints Respiratory: Respiratory: Reports no additional respiratory complaints Gastrointestinal: Gastrointestinal: Reports no additional gastrointestinal complaints Genitourinary: Genitourinary: Reports no additional female genitourinary complaints Exam Narrative: Exam Narrative: General: WD/WN female in NAD Heart: normal S1 and S2; no rub or gallop Lungs: Symmetric and clear Abdomen: soft, nontender, nondistended, positive bowel sounds Extremities: Trace edema Skin: no rash Objective Data Vital Signs Vital Signs: Vital Signs - 24 hr 11/25/19 09:28 11/25/19 14:00 11/25/19 20:20 Temperature 35.9 C L Pulse Rate 63 60
--- NOTE | 2019-11-26 07:22 | PM.PNNEP ---
Progress Note: A&P Assessment and Plan (1) Acute renal failure: Qualifiers: Acute renal failure type: unspecified Qualified Code(s): N17.9 - Acute kidney failure, unspecified Code(s): N17.9 - Acute kidney failure, unspecified Status: Acute Assessment and Plan: etiology unclear urine electrolytes suggest prerenal azotemia She has a bladder infection but blood cultures were negative. She has about 750 of protein per g of creatinine renal ultrasound unremarkable for smallish kidneys. Perhaps she was pre renal/intravascularly volume depleted because she was not eating and also was receiving Lasix for 5 days before she came in. Currently volume status looks okay. Diuretics decreased yesterday. She is getting D10. I will stop this because she is eating now. (2) Chronic kidney disease, stage 3: Code(s): N18.3 - Chronic kidney disease, stage 3 (moderate) Status: Acute Assessment and Plan: baseline creatinine ~ 1.1 - 1.2mg/dl secondary ot HTN, vascular disease and age (3) Anasarca: Code(s): R60.1 - Generalized edema Status: Acute Assessment and Plan: Doing better. Now on oral Bumex alone. (4) HTN (hypertension): Code(s): I10 - Essential (primary) hypertension Status: Chronic Assessment and Plan: This is doing well. (5) Anemia: Code(s): D64.9 - Anemia, unspecified Status: Chronic Assessment and Plan: presumably related to BLOSSOM, CKD, and acute illness Check a hemoglobin tomorrow consider empiric Epogen (6) UTI (urinary tract infection): Code(s): N39.0 - Urinary tract infection, site not specified Status: Acute Assessment and Plan: UA highly suggestive Cultures are negative. WBC is normal in the blood. On ceftriaxone. Repeat UA still shows pyuria. Will check a urinalysis by straight catheterization and reflex this to culture. (7) Hypoglycemia: Code(s): E16.2 - Hypoglycemia, unspecified Status: Acute Assessment and Plan: She is eating better now. Cortisol is okay. Stop D10 for now and see how she does. (8) Hyponatremia: Code(s): E87.1 - Hypo-osmolality and hyponatremia Status: Acute Assessment and Plan: Probably due to renal insufficiency plus D 10 W. Stopping the latter. Additional Plan Subjective Date/time seen: 11/26/19 07:22 Interval history: Patient is feeling okay. No shortness of breath. No swelling. No chest pain or shortness of breath Review of Systems Cardiovascular: Cardiovascular: Reports no additional cardiovascular complaints Respiratory: Respiratory: Reports no additional respiratory complaints Gastrointestinal: Gastrointestinal: Reports no additional gastrointestinal complaints Genitourinary: Genitourinary: Reports no additional female genitourinary complaints Exam Narrative: Exam Narrative: General: WD/WN female in NAD Heart: normal S1 and S2; no rub or gallop Lungs: Symmetric and clear Abdomen: soft, nontender, nondistended, positive bowel sounds Extremities: Trace edema Skin: no rash Objective Data Vital Signs Vital Signs: Vital Signs - 24 hr 11/25/19 09:28 11/25/19 14:00 11/25/19 20:20 Temperature 35.9 C L Pulse Rate 63 60 Respiratory Rate 18 16 Blood Pressure 126/40 L Pulse Oximetry 97 100 96 11/25/19 22:00 11/26/19 06:00 Temperature 35.6 C L 36.1 C L Pulse Rate 57 L 61 Respiratory Rate 18 18 Blood Pressure 115/44 L 120/45 L Pulse Oximetry 95 91 Intake/Output Intake/Output: Intake & Output 11/23/19 11/24/19 11/25/19 11/26/19 23:59 23:59 23:59 23:59 Intake Total 2510 2730 4025 1785 Output Total 8755 2675 2925 1200 Balance 193 95 3054 585 Meds/Results Medications: Active Medications Generic Name Dose Route Start Last Admin Trade Name Freq PRN Reason Stop Dose Admin Hydrocodone Bitart/Acetaminophen 1 tab 11/20/19
[2019-11-26 08:00] VITALS: PULSE 61; RESP 18; O2SAT 91
--- NOTE | 2019-11-26 08:48 | PCOTNOTE ---
Attempted to see patient this am, however patient was off floor for x-ray at this time.
[2019-11-26 09:40] LABS: Glucose Point of Care 137 (65-105)
[2019-11-26] MEDS: BUMETANIDE 1 MG TABLET 2 MG PO ×2 (10:02→16:59)
[2019-11-26] MEDS: TOLNAFTATE 1% POWDER 45 GM BTL 1 APPLIC TOPICAL ×2 (10:03→21:30)
[2019-11-26] MEDS: HYDROCORTISONE 1% 30 GM OINTMENT 1 APPLIC TOPICAL ×2 (10:03→21:30)
[2019-11-26] MEDS: ASPIRIN 325 MG TABLET PO (10:04)
[2019-11-26 11:27] LABS: Glucose Point of Care 125 (65-105)
[2019-11-26 14:00] VITALS: BP 130/42; PULSE 55; RESP 18; TEMP 37; O2SAT 98
[2019-11-26 17:18] LABS: Glucose Point of Care 96 (65-105)
[2019-11-26 18:24] LABS: Chloride Rand Ur 24 mmol/L (32-290); Chloride/Creatinine Rand Ur 21 (38-318); Creatinine Random Urine 114 mg/dL (20-275)
[2019-11-26 22:00] VITALS: BP 116/49; PULSE 67; RESP 20; TEMP 36.2; O2SAT 97
[2019-11-27 01:51] LABS: Glucose Point of Care 81 (65-105)
[2019-11-27 06:49] LABS: Hematocrit 25.3 % (37.0-47.0); Hemoglobin 8.3 g/dL (12.0-15.0); Mean Corpuscular HGB Conc 32.8 g/dl (32-36); Mean Corpuscular Hemoglobin 29.5 pg (26-34); Mean Platelet Volume 11.8 fl (7.4-10.4); Platelet Count Result 242 k/mm3 (150-375); Red Blood Count 2.81 M/mm3 (4.2-5.4); Red Cell Distribution Width 14.6 % (11.5-14.5)
[2019-11-27 06:55] VITALS: BP 130/46; PULSE 69; RESP 20; TEMP 36.3; O2SAT 99
[2019-11-27 07:05] LABS: Albumin Level 2.7 g/dL (3.5-5.1); Blood Urea Nitrogen 39 mg/dL (7-17); Calcium 8.1 mg/dL (8.4-10.2); Carbon Dioxide 23 mmol/L (22-30); Chloride 95 mmol/L (98-107); Estimated CRCL calculation 23 ml/min; Estimated Glomerular Filt Rate 21; Glucose 94 mg/dL (65-105); Phosphorus 4.8 mg/dL (2.5-4.5); Potassium 3.3 mmol/L (3.4-5.0); Sodium 132 mmol/L (137-145)
[2019-11-27] MEDS: BUMETANIDE 1 MG TABLET 2 MG PO ×2 (08:51→17:23)
[2019-11-27] MEDS: POTASSIUM CHLORIDE 20 MEQ PACKET (FOR LIQUID) 40 MEQ PO (08:51)
[2019-11-27] MEDS: TOLNAFTATE 1% POWDER 45 GM BTL 1 APPLIC TOPICAL ×2 (08:52→21:36)
[2019-11-27] MEDS: HYDROCORTISONE 1% 30 GM OINTMENT 1 APPLIC TOPICAL ×2 (08:52→21:36)
[2019-11-27] MEDS: ASPIRIN 325 MG TABLET PO (08:52)
--- NOTE | 2019-11-27 09:36 | WPDNEUROPN ---
Review of Systems Review of Systems: All systems reviewed & are unremarkable except as noted in HPI and below Constitutional: Constitutional: Reports no additional constitutional complaints Exam Const: General: cooperative and no acute distress Orientation/consciousness: oriented to person and oriented to place HENMT: Head: atraumatic Objective Data Vital Signs Vital Signs: Vital Signs - 24 hr 11/26/19 14:00 11/26/19 22:00 11/27/19 06:55 Temperature 37.0 C 36.2 C L 36.3 C L Pulse Rate 55 L 67 69 Respiratory Rate 18 20 20 Blood Pressure 130/42 L 116/49 L 130/46 L Pulse Oximetry 98 97 99 Intake/Output Intake/Output: Intake & Output 11/24/19 11/25/19 11/26/19 11/27/19 23:59 23:59 23:59 23:59 Intake Total 2730 4025 2005 200 Output Total 2675 2925 2350 1200 Balance 55 1100 -345 -1000 Meds/Results Medications: Active Medications Generic Name Dose Route Start Last Admin Trade Name Freq PRN Reason Stop Dose Admin Hydrocodone Bitart/Acetaminophen 1 tab 11/20/19 14:20 11/27/19 06:45 [place] 5-325 Mg PO 1 tab Q4H PRN Administration Pain Rated 4-6 Aspirin 325 mg 11/24/19 08:00 11/27/19 08:52 Aspirin PO 325 mg DAILY@0800 DOROTHY Administration Bumetanide 2 mg 11/25/19 17:00 11/27/19 08:51 Bumex Po PO 2 mg BID DOROTHY Administration Dextrose 12.5 gm 11/21/19 02:58 11/22/19 02:29 Dextrose 50% Syringe IV PUSH 12.5 gm PRN PRN Administration Hypoglycemia Protocol Glucagon 1 mg 11/21/19 02:58 11/22/19 05:26 Glucagon For Inj IM 1 mg PRN PRN Administration Hypoglycemia Protocol Glucose 15 gm 11/21/19 02:58 11/21/19 10:51 Glutose 15 PO 15 gm PRN PRN Administration Hypoglycemia Protocol Hydrocortisone 1 applic 11/21/19 09:00 11/27/19 08:52 Hydrocortisone 1% Ointment TOPICAL 1 applic Q12HR DOROTHY Administration Dextrose 1,000 mls @ 100 mls/hr 11/21/19 02:58 Dextrose 5% 1,000 Ml IVPB PRN PRN Hypoglycemia Protocol Ceftriaxone Sodium/Dextrose 1 gm in 50 mls @ 100 mls/hr 11/22/19 14:00 11/26/19 14:44 Rocephin 1 Gm/D5w 50 Ml IVPB 100 mls/hr Q24H DOROTHY Administration Morphine Sulfate 4 mg 11/20/19 14:20 Morphine Sulfate Inj IV PUSH Q2H PRN Pain Rated 7-10 Ondansetron HCl 4 mg 11/20/19 14:20 Zofran Inj IV PUSH Q4H PRN Nausea Tolnaftate 1 applic 11/22/19 10:55 11/27/19 08:52 Tolnaftate 1% Powder TOPICAL 1 applic Q12HR DOROTHY Administration Radiology Results: ITS Impressions Chest CT 11/21/19 08:19 IMPRESSION: 1. Mild pulmonary edema. 2. Small pleural effusions. 3. Mucous plugging in left lower lobe. 4. Cardiomegaly. 5. Asymmetric body wall edema, worse on the left. 6. Small sliding hiatal hernia. Venous Doppler Study 11/21/19 08:26 IMPRESSION: 1. No deep venous thrombosis. Renal Ultrasound 11/21/19 08:27 IMPRESSION: 1. Normal kidneys. No hydronephrosis. Head CT 11/22/19 16:28 IMPRESSION: 1. Moderate-sized region of prominent vasogenic edema in the left parietal lobe. Differential includes malignancy either primary or metastatic, infection, trauma or hemorrhage although no acute hemorrhage is appreciated, ischemia including venous thrombosis, focal inflammation and acute hypertensive encephalopathy. Recommend further evaluation with pre and postcontrast MRI. Carotid Doppler Study 11/23/19 09:42 IMPRESSION: 1. <50% stenosis in the right internal carotid artery. 2. <50% stenosis in the left internal carotid artery. Brain MRI 11/23/19 12:29 IMPRESSION: 1. Old infarcts involving the left temporal occipital region, left frontoparietal white matter, and right frontal lobe white matter. 2. Moderate nonspecific cerebral white matter disease, which likely represents chronic small vessel ischemic disease. Chest X-Ray 11/26/19 08:51 IMPRESSION: 1. Worsened small left pleural effusion. 2. Worsened airspac
[2019-11-27 10:59] LABS: Glucose Point of Care 73 (65-105)
--- NOTE | 2019-11-27 11:36 | P.PNNP_ITS ---
Progress Note: A&P Assessment and Plan (1) Acute renal failure: Qualifiers: Acute renal failure type: unspecified Qualified Code(s): N17.9 - Acute kidney failure, unspecified Code(s): N17.9 - Acute kidney failure, unspecified Status: Acute Assessment and Plan: * etiology not entirely unclear * evaluation to date demonstrates: - urine electrolytes suggest prerenal azotemia - she has a bladder infection but blood cultures were negative. - has about 750 of proteinuria - renal ultrasound remarkable for smallish kidneys. * perhaps she was pre renal/intravascularly volume depleted because she was not eating and also was receiving Lasix for 5 days before she came in. * on lower dose diuretics and swelling better (2) Chronic kidney disease, stage 3: Code(s): N18.3 - Chronic kidney disease, stage 3 (moderate) Status: Acute Assessment and Plan: * baseline creatinine ~ 1.1 - 1.2mg/dl * secondary ot HTN, vascular disease and age (3) Anasarca: Code(s): R60.1 - Generalized edema Status: Acute Assessment and Plan: * doing better * on oral bumex at this time (4) HTN (hypertension): Code(s): I10 - Essential (primary) hypertension Status: Chronic Assessment and Plan: * reasonable control * follow hemodynamics (5) Anemia: Code(s): D64.9 - Anemia, unspecified Status: Chronic Assessment and Plan: * presumably related to BLOSSOM, CKD, and acute illness * H/H stable * consider empiric Epogen (6) UTI (urinary tract infection): Code(s): N39.0 - Urinary tract infection, site not specified Status: Acute Assessment and Plan: * UA was highly suggestive * cultures are negative. WBC is normal in the blood. * On ceftriaxone. * Repeat UA still shows pyuria (7) Hyponatremia: Code(s): E87.1 - Hypo-osmolality and hyponatremia Status: Acute Assessment and Plan: * due to BLOSSOM/renal insufficiency and D5W * off D5W * sodium better Will continue to follow Subjective Date/time seen: 11/27/19 11:36 Chart/Interim reviewed since last seen -- overall, seems to be doing better; edema/swelling improved with steady improvement in renal function; no apparent distress voiced. Exam Narrative: Exam Narrative: General: WD/WN female in NAD Heart: normal S1 and S2; no rub or gallop Lungs: clear to auscultation Abdomen: soft, nontender, nondistended, positive bowel sounds Extremities:trace edema Skin:no rash or nodules Objective Data Vital Signs Vital Signs: Vital Signs Temp Pulse Resp BP Pulse Ox 11/27/19 06:55 36.3 C L 69 20 130/46 L 99 11/26/19 22:00 36.2 C L 67 20 116/49 L 97 11/26/19 14:00 37.0 C 55 L 18 130/42 L 98 Intake/Output Intake/Output: Intake & Output 11/24/19 11/25/19 11/26/19 11/27/19 23:59 23:59 23:59 23:59 Intake Total 2730 4025 2005 320 Output Total 2673 3505 2350 1200 Balance 55 8492 -909 -120 Meds/Results Medications: Active Medications Generic Name Dose Route Start Last Admin Trade Name Freq PRN Reason Stop Dose Admin Hydrocodone Bitart/Acetaminophen 1 tab 11/20/19 14:20 11/27/19 06:45 [place] 5-325 Mg PO 1 tab Q4H PRN Ad
--- NOTE | 2019-11-27 11:36 | PM.PNNEP ---
Progress Note: A&P Assessment and Plan (1) Acute renal failure: Qualifiers: Acute renal failure type: unspecified Qualified Code(s): N17.9 - Acute kidney failure, unspecified Code(s): N17.9 - Acute kidney failure, unspecified Status: Acute Assessment and Plan: etiology not entirely unclear evaluation to date demonstrates: - urine electrolytes suggest prerenal azotemia - she has a bladder infection but blood cultures were negative. - has about 750 of proteinuria - renal ultrasound remarkable for smallish kidneys. perhaps she was pre renal/intravascularly volume depleted because she was not eating and also was receiving Lasix for 5 days before she came in. on lower dose diuretics and swelling better (2) Chronic kidney disease, stage 3: Code(s): N18.3 - Chronic kidney disease, stage 3 (moderate) Status: Acute Assessment and Plan: baseline creatinine ~ 1.1 - 1.2mg/dl secondary ot HTN, vascular disease and age (3) Anasarca: Code(s): R60.1 - Generalized edema Status: Acute Assessment and Plan: doing better on oral bumex at this time (4) HTN (hypertension): Code(s): I10 - Essential (primary) hypertension Status: Chronic Assessment and Plan: reasonable control follow hemodynamics (5) Anemia: Code(s): D64.9 - Anemia, unspecified Status: Chronic Assessment and Plan: presumably related to BOLSSOM, CKD, and acute illness H/H stable consider empiric Epogen (6) UTI (urinary tract infection): Code(s): N39.0 - Urinary tract infection, site not specified Status: Acute Assessment and Plan: UA was highly suggestive cultures are negative. WBC is normal in the blood. On ceftriaxone. Repeat UA still shows pyuria (7) Hyponatremia: Code(s): E87.1 - Hypo-osmolality and hyponatremia Status: Acute Assessment and Plan: due to BLOSSOM/renal insufficiency and D5W off D5W sodium better Will continue to follow Subjective Date/time seen: 11/27/19 11:36 Chart/Interim reviewed since last seen -- overall, seems to be doing better; edema/swelling improved with steady improvement in renal function; no apparent distress voiced. Exam Narrative: Exam Narrative: General: WD/WN female in NAD Heart: normal S1 and S2; no rub or gallop Lungs: clear to auscultation Abdomen: soft, nontender, nondistended, positive bowel sounds Extremities:trace edema Skin:no rash or nodules Objective Data Vital Signs Vital Signs: Vital Signs Temp Pulse Resp BP Pulse Ox 11/27/19 06:55 36.3 C L 69 20 130/46 L 99 11/26/19 22:00 36.2 C L 67 20 116/49 L 97 11/26/19 14:00 37.0 C 55 L 18 130/42 L 98 Intake/Output Intake/Output: Intake & Output 11/24/19 11/25/19 11/26/19 11/27/19 23:59 23:59 23:59 23:59 Intake Total 2730 4025 2005 320 Output Total 2673 2924 2350 1200 Balance 55 0189 -156 -550 Meds/Results Medications: Active Medications Generic Name Dose Route Start Last Admin Trade Name Freq PRN Reason Stop Dose Admin Hydrocodone Bitart/Acetaminophen 1 tab 11/20/19 14:20 11/27/19 06:45 [place] 5-325 Mg PO 1 tab Q4H PRN Administration Pain Rated 4-6 Aspirin 325 mg 11/24/19 08:00 11/27/19 08:52 Aspirin PO 325 mg DAILY@0800 DOROTHY Administration Bumetanide 2 mg 11/25/19 17:00 11/27/19 08:51 Bumex Po PO 2 mg BID DOROTHY Administration Dextrose 12.5 gm 11/21/19 02:58 11/22/19 02:29 Dextrose 50% Syringe IV PUSH 12.5 gm PRN PRN Administration Hypoglycemia Protocol Glucagon 1 mg 11/21/19 02:58 11/22/19 05:26 Glucagon For Inj IM 1 mg PRN PRN Administration Hypoglycemia Protocol Glucose 15 gm 11/21/19 02:58 11/21/19 10:51 Glutose 15 PO 15 gm PRN PRN Administration Hypoglycemia Protocol Hydrocortisone 1 applic 11/21/19 09:00 11/27/19 0
--- NOTE | 2019-11-27 11:55 | WPDNEUROPN ---
Progress Note: A&P Assessment and Plan (1) Hyponatremia: Code(s): E87.1 - Hypo-osmolality and hyponatremia Status: Acute (2) Vasogenic cerebral edema: Code(s): G93.6 - Cerebral edema Status: Acute (3) CVA (cerebral vascular accident): Code(s): I63.9 - Cerebral infarction, unspecified Status: Acute (4) Anasarca: Code(s): R60.1 - Generalized edema Status: Acute (5) UTI (urinary tract infection): Code(s): N39.0 - Urinary tract infection, site not specified Status: Acute (6) Chronic kidney disease, stage 3: Code(s): N18.3 - Chronic kidney disease, stage 3 (moderate) Status: Acute (7) HTN (hypertension): Code(s): I10 - Essential (primary) hypertension Status: Chronic (8) Anemia: Code(s): D64.9 - Anemia, unspecified Status: Chronic (9) Acute renal failure: Qualifiers: Acute renal failure type: unspecified Qualified Code(s): N17.9 - Acute kidney failure, unspecified Code(s): N17.9 - Acute kidney failure, unspecified Status: Acute (10) Arm edema: Code(s): R60.0 - Localized edema Status: Acute (11) Hypoglycemia: Code(s): E16.2 - Hypoglycemia, unspecified Status: Acute Additional Plan stable withall the deficit Exam Const: General: no acute distress Orientation/consciousness: oriented to person Eyes: General: appearance normal, both eyes and all related structures Periorbital: periorbital findings normal Eyelids: eyelids normal Sclera: sclerae normal Pupils: Equal, round and reactive pupils present EOM: EOMs intact bilaterally Direct Ophthalmoscopy: no photophobia Neck: Neck: full ROM Resp: Auscultation: clear to auscultation bilaterally Cardio: Rate: regular rate Rhythm: regular rhythm Skin: General skin exam: normal color (edema) Neuro: General: oriented to person and moves all extremities Cranial nerves: Yes Equal, round and reactive pupils present, Yes Bilaterally intact EOM present, Yes Nystagmus not present, Yes Normal facial strength present, Yes Midline tongue present and Yes Normal gag reflex present Gait exam (Neuro): Unable to assess gait Motor exam (neuro): 5/5 motor strength present throughout (right sided weekness) Sensory Exam: normal sensation and Sensory deficit (Neuro) (right sided sensory deficit) Deep tendon reflexes (DTR's): Right triceps reflex intensity grade: 1+, Left triceps reflex intensity grade: 0, Rt Biceps (C5, C6): 1+, Left biceps reflex intensity grade: 0, Right brachioradialis reflex intensity grade: 1+, Left brachioradialis reflex intensity grade: 0, Right patellar reflex intensity grade: 1+, Left patellar reflex intensity grade: 0, Right ankle reflex intensity grade: 1+ and Left ankle reflex intensity grade: 0 Plantar Reflex Responses: downgoing: left and upgoing (positive Babinski): right Psych: Appearance: grossly normal Objective Data Vital Signs Vital Signs: Vital Signs - 24 hr 11/26/19 14:00 11/26/19 22:00 11/27/19 06:55 Temperature 37.0 C 36.2 C L 36.3 C L Pulse Rate 55 L 67 69 Respiratory Rate 18 20 20 Blood Pressure 130/42 L 116/49 L 130/46 L Pulse Oximetry 98 97 99 Intake/Output Intake/Output: Intake & Output 11/24/19 11/25/19 11/26/19 11/27/19 23:59 23:59 23:59 23:59 Intake Total 2730 4025 2005 320 Output Total 8687 8352 235 1200 Balance 55 1100 -345 -550 Meds/Results Medications: Active Medications Generic Name Dose Route Start Last Admin Trade Name Freq PRN Reason Stop Dose Admin Hydrocodone Bitart/Acetaminophen 1 tab 11/20/19 14:20 11/27/19 06:45 [place] 5-325 Mg PO 1 tab Q4H PRN Administration Pain Rated 4-6 Aspirin 325 mg 11/24/19 08:00 11/27/19 08:52 Aspirin PO 325 mg DAILY@0800 DOROTHY Administration Bumetanide 2 mg 11/25/19 17:00 11/27/19 08:51 Bumex Po PO 2 mg BID DOROTHY Administration Dextrose 12.5 gm 11/21/19 02:58 11/22/19 02:29 De
[2019-11-27 12:55] LABS: Glucose Point of Care 95 (65-105)
[2019-11-27 15:30] VITALS: BP 98/59; PULSE 62; RESP 16; TEMP 36.2; O2SAT 98
--- NOTE | 2019-11-27 17:16 | PM.IMPN ---
Progress Note: A&P Assessment and Plan (1) Acute renal failure: Qualifiers: Acute renal failure type: unspecified Qualified Code(s): N17.9 - Acute kidney failure, unspecified Code(s): N17.9 - Acute kidney failure, unspecified Status: Acute Assessment and Plan: 11/26/2019 74 year old female who resides at [facility]. The patient stated that she has been having some swelling to her left upper arm. She has had a previous stroke in the past that affected her left side but she does not recall her arm being like this before. Pt is a poor historian appears tired and malaise. Holding some conversation. Pt looks swollen all over. potassium is 4.5, creat is 3.9. US renal is normal, no hydronephrosis. Venous dopplers are negative. History of CVA and HTN, explains that she did have dialysis in the past. Pt may benefit from dialysis, continue to watch. Pt looks much improved today. More alert holding conversation, eating her breakfast. CT scan of the head shows vasogenic edema however there is no bleeding MRI of the brain did not show any similar finding, today patient states her left arm is much improved venous Doppler was negative for DVT, most likely patient had dependent edema as patient sits on left arm, instructed to avoid leaning on left arm, today patient is participating with PT, stats doing better, patient denies any chest pain or shortness of breath, patient clinically stable continue to monitor, Patient with CKD her creatinine is trendind down from 3.8 when initially present to 2.4 today and and repeat chest x-ray showed possibly volume overload will stop the IV fluid and will monitor patient is seen by Dr. Barnard (2) Anemia: Code(s): D64.9 - Anemia, unspecified Status: Chronic Assessment and Plan: Most likely is chronic. (3) HTN (hypertension): Code(s): I10 - Essential (primary) hypertension Status: Chronic Assessment and Plan: Continue lasix hold other BP medications (4) Arm edema: Code(s): R60.0 - Localized edema Status: Acute Assessment and Plan: Doppler was performed to the left upper extremity which was negative for any DVT. Could this possibly SVC syndrome? Rpt US of upper ext. lower ext is negative. ? dependant edema from neglect on that side from old stroke (5) Hypoglycemia: Code(s): E16.2 - Hypoglycemia, unspecified Status: Acute Assessment and Plan: Continue to monitor blood sugars. Check cortisol level. Could she have some adrenal insufficiency? (6) UTI (urinary tract infection): Code(s): N39.0 - Urinary tract infection, site not specified Status: Acute Assessment and Plan: pt has a UTi treat with iv rocephin pt to have blood cultures drawn ? sepsis, bc negative to date (7) CVA (cerebral vascular accident): Code(s): I63.9 - Cerebral infarction, unspecified Status: Acute Assessment and Plan: CT brain showed vasogenic edema MRI shows old infarcts only, carotids negative, echo negative (8) Vasogenic cerebral edema: Code(s): G93.6 - Cerebral edema Status: Acute Assessment and Plan: CT scan of the head shows vasogenic edema however there is no bleeding MRI of the brain did not show any similar finding, patient is seen by neurologist patient is clinically stable and seem to be her baseline Subjective Date/time seen: 11/26/2019 74 year old female who resides at [facility]. The patient stated that she has been having some swelling to her left upper arm. She has had a previous stroke in the past that affected her left side but she does not recall her arm being like this before. Pt is a poor historian appears tired and malaise. Holding some conversation. Pt looks swollen all over. potassium is 4.5, creat is 3.9. US renal is normal, no hydronephrosis. Venous dopplers are negative. History of CVA and HTN, explains that she did
--- NOTE | 2019-11-27 17:21 | PM.IMPN ---
Progress Note: A&P Assessment and Plan (1) Acute renal failure: Qualifiers: Acute renal failure type: unspecified Qualified Code(s): N17.9 - Acute kidney failure, unspecified Code(s): N17.9 - Acute kidney failure, unspecified Status: Acute Assessment and Plan: 11/27/19 17:21 74 year old female who resides at [facility]. The patient stated that she has been having some swelling to her left upper arm. She has had a previous stroke in the past that affected her left side but she does not recall her arm being like this before. Pt is a poor historian appears tired and malaise. Holding some conversation. Pt looks swollen all over. potassium is 4.5, creat is 3.9. US renal is normal, no hydronephrosis. Venous dopplers are negative. History of CVA and HTN, explains that she did have dialysis in the past. Pt may benefit from dialysis, continue to watch. Pt looks much improved today. More alert holding conversation, eating her breakfast. CT scan of the head shows vasogenic edema however there is no bleeding MRI of the brain did not show any similar finding, today patient states her left arm is much improved venous Doppler was negative for DVT, most likely patient had dependent edema as patient sits on left arm, instructed to avoid leaning on left arm, today patient is participating with PT, stats doing better, patient denies any chest pain or shortness of breath, patient clinically stable continue to monitor, Patient with CKD her creatinine is trendind down from 3.8 when initially present to 2.4 today and and repeat chest x-ray showed possibly volume overload will stop the IV fluid and will monitor patient is seen by Dr. Cerda and DR. Estrada, patient clinically symptoms are improving and now on baseline discussed with the [facility] facilities to possibly discharge the patient to nursing awaiting placement (2) Anemia: Code(s): D64.9 - Anemia, unspecified Status: Chronic Assessment and Plan: Most likely is chronic. (3) HTN (hypertension): Code(s): I10 - Essential (primary) hypertension Status: Chronic Assessment and Plan: Continue lasix hold other BP medications (4) Arm edema: Code(s): R60.0 - Localized edema Status: Acute Assessment and Plan: Doppler was performed to the left upper extremity which was negative for any DVT. Could this possibly SVC syndrome? Rpt US of upper ext. lower ext is negative. ? dependant edema from neglect on that side from old stroke (5) Hypoglycemia: Code(s): E16.2 - Hypoglycemia, unspecified Status: Acute Assessment and Plan: Continue to monitor blood sugars. Check cortisol level. Could she have some adrenal insufficiency? (6) UTI (urinary tract infection): Code(s): N39.0 - Urinary tract infection, site not specified Status: Acute Assessment and Plan: pt has a UTi treat with iv rocephin pt to have blood cultures drawn ? sepsis, bc negative to date, will stop anitbiotics (7) CVA (cerebral vascular accident): Code(s): I63.9 - Cerebral infarction, unspecified Status: Acute Assessment and Plan: CT brain showed vasogenic edema MRI shows old infarcts only, carotids negative, echo negative (8) Vasogenic cerebral edema: Code(s): G93.6 - Cerebral edema Status: Acute Assessment and Plan: CT scan of the head shows vasogenic edema however there is no bleeding MRI of the brain did not show any similar finding, patient is seen by neurologist patient is clinically stable and seem to be her baseline Subjective Date/time seen: 11/27/19 17:21 74 year old female who resides at [facility]. The patient stated that she has been having some swelling to her left upper arm. She has had a previous stroke in the past that affected her left side but she does not recall her arm being like this before. Pt is a poor historian appears tired and manuela
[2019-11-27 18:18] LABS: Glucose Point of Care 83 (65-105)
[2019-11-27 22:00] VITALS: BP 127/64; PULSE 68; RESP 20; TEMP 36.3; O2SAT 98
[2019-11-27 23:16] LABS: Glucose Point of Care 91 (65-105)
[2019-11-28 06:00] VITALS: BP 129/43; PULSE 71; RESP 18; TEMP 36.9; O2SAT 98
[2019-11-28 06:32] LABS: Albumin Level 2.8 g/dL (3.5-5.1); Blood Urea Nitrogen 38 mg/dL (7-17); Calcium 8.3 mg/dL (8.4-10.2); Carbon Dioxide 25 mmol/L (22-30); Chloride 99 mmol/L (98-107); Estimated CRCL calculation 24 ml/min; Estimated Glomerular Filt Rate 22; Glucose 75 mg/dL (65-105); Phosphorus 4.8 mg/dL (2.5-4.5); Potassium 3.5 mmol/L (3.4-5.0); Sodium 133 mmol/L (137-145)
[2019-11-28 08:00] VITALS: PULSE 71; RESP 18; RESP 20; O2SAT 94; O2SAT 98
[2019-11-28 08:11] LABS: Glucose Point of Care 64 (65-105)
[2019-11-28] MEDS: BUMETANIDE 1 MG TABLET 2 MG PO ×2 (08:57→18:35)
[2019-11-28] MEDS: ASPIRIN 325 MG TABLET PO (08:57)
[2019-11-28] MEDS: HYDROCORTISONE 1% 30 GM OINTMENT 1 APPLIC TOPICAL ×2 (08:58→20:31)
[2019-11-28] MEDS: TOLNAFTATE 1% POWDER 45 GM BTL 1 APPLIC TOPICAL ×2 (08:58→20:31)
[2019-11-28] MEDS: POTASSIUM CHLORIDE 20 MEQ PACKET (FOR LIQUID) 40 MEQ PO (09:05)
[2019-11-28 12:19] LABS: Glucose Point of Care 96 (65-105)
[2019-11-28 13:42] VITALS: BMI 37.8
[2019-11-28 14:30] VITALS: BMI 10.0
--- NOTE | 2019-11-28 15:10 | PM.PNNEP ---
Progress Note: A&P Assessment and Plan (1) Acute renal failure: Qualifiers: Acute renal failure type: unspecified Qualified Code(s): N17.9 - Acute kidney failure, unspecified Code(s): N17.9 - Acute kidney failure, unspecified Status: Acute Assessment and Plan: etiology not entirely unclear evaluation to date demonstrates: - urine electrolytes suggest prerenal azotemia - she has a bladder infection but blood cultures were negative. - has about 750 of proteinuria - renal ultrasound remarkable for smallish kidneys. perhaps she was pre renal/intravascularly volume depleted because she was not eating and also was receiving Lasix for 5 days before she came in on lower dose diuretics and swelling better (2) Chronic kidney disease, stage 3: Code(s): N18.3 - Chronic kidney disease, stage 3 (moderate) Status: Acute Assessment and Plan: baseline creatinine ~ 1.1 - 1.2mg/dl secondary ot HTN, vascular disease and age (3) Anasarca: Code(s): R60.1 - Generalized edema Status: Acute Assessment and Plan: doing better on oral bumex at this time (4) HTN (hypertension): Code(s): I10 - Essential (primary) hypertension Status: Chronic Assessment and Plan: reasonable control follow hemodynamics (5) Anemia: Code(s): D64.9 - Anemia, unspecified Status: Chronic Assessment and Plan: presumably related to BLOSSOM, CKD, and acute illness H/H stable consider empiric Epogen (6) Hyponatremia: Code(s): E87.1 - Hypo-osmolality and hyponatremia Status: Acute Assessment and Plan: due to BLOSSOM/renal insufficiency and D5W off D5W sodium better Will continue to follow Subjective Date/time seen: 11/28/19 15:10 No apparent distress voiced at the time of my visit; swelling/edema continues to improve as does renal function/creatinine; no other issues or problems voiced; no other complaints noted. Exam Narrative: Exam Narrative: General: WD/WN female in NAD Heart: normal S1 and S2; no rub or gallop Lungs: clear to auscultation Abdomen: soft, nontender, nondistended, positive bowel sounds Extremities:trace edema Skin:no rash or nodules Objective Data Vital Signs Vital Signs: Vital Signs Temp Pulse Resp BP Pulse Ox 11/28/19 08:00 71 18 98 11/28/19 06:00 36.9 C 71 18 129/43 L 98 11/27/19 22:00 36.3 C L 68 20 127/64 98 11/27/19 15:30 36.2 C L 62 16 98/59 L 98 Intake/Output Intake/Output: Intake & Output 11/25/19 11/26/19 11/27/19 11/28/19 23:59 23:59 23:59 23:59 Intake Total 4025 2055 1040 720 Output Total 2925 2350 3000 1750 Balance 3194 -934 -5206 -4225 Meds/Results Medications: Active Medications Generic Name Dose Route Start Last Admin Trade Name Freq PRN Reason Stop Dose Admin Hydrocodone Bitart/Acetaminophen 1 tab 11/20/19 14:20 11/27/19 06:45 [place] 5-325 Mg PO 1 tab Q4H PRN Administration Pain Rated 4-6 Aspirin 325 mg 11/24/19 08:00 11/28/19 08:57 Aspirin PO 325 mg DAILY@0800 DOROTHY Administration Bumetanide 2 mg 11/25/19 17:00 11/28/19 08:57 Bumex Po PO 2 mg BID DOROTHY Administration Dextrose 12.5 gm 11/21/19 02:58 11/22/19 02:29 Dextrose 50% Syringe IV PUSH 12.5 gm PRN PRN Administration Hypoglycemia Protocol Glucagon 1 mg 11/21/19 02:58 11/22/19 05:26 Glucagon For Inj IM 1 mg PRN PRN Administration Hypoglycemia Protocol Glucose 15 gm 11/21/19 02:58 11/21/19 10:51 Glutose 15 PO 15 gm PRN PRN Administration Hypoglycemia Protocol Hydrocortisone 1 applic 11/21/19 09:00 11/28/19 08:58 Hydrocortisone 1% Ointment TOPICAL 1 applic Q12HR DOROTHY Administration Dextrose 1,000 mls @ 100 mls/hr 11/21/19 02:58 Dextrose 5% 1,000 Ml IVPB PRN PRN Hypoglycemia Protocol Morphine Sulfate 4 mg 11/20/19
[2019-11-28 16:00] VITALS: BP 118/45; PULSE 70; RESP 18; TEMP 37.2; O2SAT 93
--- NOTE | 2019-11-28 16:25 | PM.IMPN ---
Progress Note: A&P Assessment and Plan (1) Acute renal failure: Qualifiers: Acute renal failure type: unspecified Qualified Code(s): N17.9 - Acute kidney failure, unspecified Code(s): N17.9 - Acute kidney failure, unspecified Status: Acute Assessment and Plan: 11/28/19 16:25 74 year old female who resides at [facility]. The patient stated that she has been having some swelling to her left upper arm. She has had a previous stroke in the past that affected her left side but she does not recall her arm being like this before. Pt is a poor historian appears tired and malaise. Holding some conversation. Pt looks swollen all over. potassium is 4.5, creat is 3.9. US renal is normal, no hydronephrosis. Venous dopplers are negative. History of CVA and HTN, explains that she did have dialysis in the past. Pt may benefit from dialysis, continue to watch. Pt looks much improved today. More alert holding conversation, eating her breakfast. CT scan of the head shows vasogenic edema however there is no bleeding MRI of the brain did not show any similar finding, today patient states her left arm is much improved venous Doppler was negative for DVT, most likely patient had dependent edema as patient sits on left arm, instructed to avoid leaning on left arm, today patient is participating with PT, stats doing better, patient denies any chest pain or shortness of breath, patient clinically stable continue to monitor, Patient with CKD her creatinine is trendind down from 3.8 when initially present to 2.4 today and and repeat chest x-ray showed possibly volume overload stopped the IV fluid and monitored patient is seen by Dr. Cerda and DR. Estrada, patient clinically symptoms are improving and now on baseline discussed with the child adolescent care to possibly discharge the patient to nursing for rehab tomorrow. (2) Anemia: Code(s): D64.9 - Anemia, unspecified Status: Chronic Assessment and Plan: Most likely is chronic. (3) HTN (hypertension): Code(s): I10 - Essential (primary) hypertension Status: Chronic Assessment and Plan: Continue lasix hold other BP medications (4) Arm edema: Code(s): R60.0 - Localized edema Status: Acute Assessment and Plan: Doppler was performed to the left upper extremity which was negative for any DVT. Could this possibly SVC syndrome? Rpt US of upper ext. lower ext is negative. ? dependant edema from neglect on that side from old stroke (5) Hypoglycemia: Code(s): E16.2 - Hypoglycemia, unspecified Status: Acute Assessment and Plan: Continue to monitor blood sugars. Check cortisol level. Could she have some adrenal insufficiency? (6) UTI (urinary tract infection): Code(s): N39.0 - Urinary tract infection, site not specified Status: Acute Assessment and Plan: pt has a UTi treat with iv rocephin pt to have blood cultures drawn ? sepsis, bc negative to date, will stop anitbiotics (7) CVA (cerebral vascular accident): Code(s): I63.9 - Cerebral infarction, unspecified Status: Acute Assessment and Plan: CT brain showed vasogenic edema MRI shows old infarcts only, carotids negative, echo negative (8) Vasogenic cerebral edema: Code(s): G93.6 - Cerebral edema Status: Acute Assessment and Plan: CT scan of the head shows vasogenic edema however there is no bleeding MRI of the brain did not show any similar finding, patient is seen by neurologist patient is clinically stable and seem to be her baseline Subjective Date/time seen: 11/28/19 16:25 74 year old female who resides at [facility]. The patient stated that she has been having some swelling to her left upper arm. She has had a previous stroke in the past that affected her left side but she does not recall her arm being like this before. Pt is a poor historian appears tired and malai
[2019-11-28 16:43] LABS: Glucose Point of Care 90 (65-105)
[2019-11-28 20:36] LABS: Glucose Point of Care 77 (65-105)
[2019-11-28 22:00] VITALS: BP 132/46; PULSE 85; RESP 18; TEMP 36.8; O2SAT 94
[2019-11-29 05:40] VITALS: BP 130/47; PULSE 76; RESP 20; TEMP 36.8; O2SAT 94
[2019-11-29 08:38] LABS: Hematocrit 25.7 % (37.0-47.0); Hemoglobin 8.4 g/dL (12.0-15.0); Mean Corpuscular HGB Conc 32.7 g/dl (32-36); Mean Corpuscular Hemoglobin 29.7 pg (26-34); Mean Corpuscular Volume 90.8 fl (80-100); Mean Platelet Volume 10.9 fl (7.4-10.4); Platelet Count Result 358 k/mm3 (150-375); Red Blood Count 2.83 M/mm3 (4.2-5.4); Red Cell Distribution Width 14.6 % (11.5-14.5); White Blood Count 13.6 K/mm3 (4.5-10.0)
--- NOTE | 2019-11-29 08:47 | P.PNNP_ITS ---
Progress Note: A&P Assessment and Plan (1) Acute renal failure: Qualifiers: Acute renal failure type: unspecified Qualified Code(s): N17.9 - Acute kidney failure, unspecified Code(s): N17.9 - Acute kidney failure, unspecified Status: Acute Assessment and Plan: * etiology not entirely unclear * Urine electrolytes showed pre renal azotemia. * Urinalysis shows bland sediment except for some white cells blood culture negative. * on lower dose diuretics and swelling better (2) Chronic kidney disease, stage 3: Code(s): N18.3 - Chronic kidney disease, stage 3 (moderate) Status: Acute Assessment and Plan: * baseline creatinine ~ 1.1 - 1.2mg/dl * secondary ot HTN, vascular disease and age (3) Anasarca: Code(s): R60.1 - Generalized edema Status: Acute Assessment and Plan: * doing better * on oral bumex at this time (4) HTN (hypertension): Code(s): I10 - Essential (primary) hypertension Status: Chronic Assessment and Plan: * Systolic blood pressure 110-132. * On no antihypertensives except for the diuretics. (5) Anemia: Code(s): D64.9 - Anemia, unspecified Status: Chronic Assessment and Plan: * presumably related to BLOSSOM, CKD, and acute illness * Hemoglobin is starting to rise; a bit up to 8.4 now. (6) Hyponatremia: Code(s): E87.1 - Hypo-osmolality and hyponatremia Status: Acute Assessment and Plan: * Probably due to renal insufficiency and diuretics. * Sodium levels relatively stable in the low 130s. Additional Plan Subjective Date/time seen: 11/29/19 08:47 Interval history: Patient is feeling okay. Eating okay. No chest pain or shortness of Breath Review of Systems Cardiovascular: Cardiovascular: Reports no additional cardiovascular complaints Respiratory: Respiratory: Reports no additional respiratory complaints Gastrointestinal: Gastrointestinal: Reports no additional gastrointestinal complaints Genitourinary: Genitourinary: Reports no additional female genitourinary complaints Exam Narrative: Exam Narrative: General: WD/WN female in NAD Heart: normal S1 and S2; no rub or gallop Lungs: clear to auscultation Abdomen: soft, nontender, nondistended, positive bowel sounds Extremities:trace edema Skin: No acute rash. Some chronic thickening of the skin in the lower extremities from the edema that was formerly there Objective Data Vital Signs Vital Signs: Vital Signs - 24 hr 11/28/19 16:00 11/28/19 22:00 11/29/19 05:40 Temperature 37.2 C 36.8 C 36.8 C Pulse Rate 70 85 76 Respiratory Rate 18 18 20 Blood Pressure 118/45 L 132/46 L 130/47 L Pulse Oximetry 93 94 94 Intake/Output Intake/Output: Intake & Output 11/26/19 11/27/19 11/28/19 11/29/19 23:59 23:59 23:59 23:59 Intake Total 5 1040 840 300 Output Total 2350 3000 3400 1250 Balance -583 -1960 -2560 -950 Meds/Results Medications: Active Medications Generic Name Dose Route Start Last Admin Trade Name Freq PRN Reason Stop Dose Admin Hydrocodone Bitart/Acetaminophen 1 tab 11/20/19 14:20 11/27/19 06:45 [place] 5-325 Mg PO 1 tab Q4H PRN Administration Yudelka
--- NOTE | 2019-11-29 08:47 | PM.PNNEP ---
Progress Note: A&P Assessment and Plan (1) Acute renal failure: Qualifiers: Acute renal failure type: unspecified Qualified Code(s): N17.9 - Acute kidney failure, unspecified Code(s): N17.9 - Acute kidney failure, unspecified Status: Acute Assessment and Plan: etiology not entirely unclear Urine electrolytes showed pre renal azotemia. Urinalysis shows bland sediment except for some white cells blood culture negative. on lower dose diuretics and swelling better (2) Chronic kidney disease, stage 3: Code(s): N18.3 - Chronic kidney disease, stage 3 (moderate) Status: Acute Assessment and Plan: baseline creatinine ~ 1.1 - 1.2mg/dl secondary ot HTN, vascular disease and age (3) Anasarca: Code(s): R60.1 - Generalized edema Status: Acute Assessment and Plan: doing better on oral bumex at this time (4) HTN (hypertension): Code(s): I10 - Essential (primary) hypertension Status: Chronic Assessment and Plan: Systolic blood pressure 110-132. On no antihypertensives except for the diuretics. (5) Anemia: Code(s): D64.9 - Anemia, unspecified Status: Chronic Assessment and Plan: presumably related to BLOSSOM, CKD, and acute illness Hemoglobin is starting to rise; a bit up to 8.4 now. (6) Hyponatremia: Code(s): E87.1 - Hypo-osmolality and hyponatremia Status: Acute Assessment and Plan: Probably due to renal insufficiency and diuretics. Sodium levels relatively stable in the low 130s. Additional Plan Subjective Date/time seen: 11/29/19 08:47 Interval history: Patient is feeling okay. Eating okay. No chest pain or shortness of Breath Review of Systems Cardiovascular: Cardiovascular: Reports no additional cardiovascular complaints Respiratory: Respiratory: Reports no additional respiratory complaints Gastrointestinal: Gastrointestinal: Reports no additional gastrointestinal complaints Genitourinary: Genitourinary: Reports no additional female genitourinary complaints Exam Narrative: Exam Narrative: General: WD/WN female in NAD Heart: normal S1 and S2; no rub or gallop Lungs: clear to auscultation Abdomen: soft, nontender, nondistended, positive bowel sounds Extremities:trace edema Skin: No acute rash. Some chronic thickening of the skin in the lower extremities from the edema that was formerly there Objective Data Vital Signs Vital Signs: Vital Signs - 24 hr 11/28/19 16:00 11/28/19 22:00 11/29/19 05:40 Temperature 37.2 C 36.8 C 36.8 C Pulse Rate 70 85 76 Respiratory Rate 18 18 20 Blood Pressure 118/45 L 132/46 L 130/47 L Pulse Oximetry 93 94 94 Intake/Output Intake/Output: Intake & Output 11/26/19 11/27/19 11/28/19 11/29/19 23:59 23:59 23:59 23:59 Intake Total 2055 1040 840 300 Output Total 2350 3000 3400 1250 Balance -295 -1960 -2560 -950 Meds/Results Medications: Active Medications Generic Name Dose Route Start Last Admin Trade Name Freq PRN Reason Stop Dose Admin Hydrocodone Bitart/Acetaminophen 1 tab 11/20/19 14:20 11/27/19 06:45 [place] 5-325 Mg PO 1 tab Q4H PRN Administration Pain Rated 4-6 Aspirin 325 mg 11/24/19 08:00 11/28/19 08:57 Aspirin PO 325 mg DAILY@0800 DOROTHY Administration Bumetanide 2 mg 11/25/19 17:00 11/28/19 18:35 Bumex Po PO 2 mg BID DOROTHY Administration Dextrose 12.5 gm 11/21/19 02:58 11/22/19 02:29 Dextrose 50% Syringe IV PUSH 12.5 gm PRN PRN Administration Hypoglycemia Protocol Glucagon 1 mg 11/21/19 02:58 11/22/19 05:26 Glucagon For Inj IM 1 mg PRN PRN Administration Hypoglycemia Protocol Glucose 15 gm 11/21/19 02:58 11/21/19 10:51 Glutose 15 PO 15 gm PRN PRN Administration Hypoglycemia Protocol Hydrocortisone 1 applic 11/21/19 09:00 11/28/19 20:31 Hydrocortisone 1% Ointment TOPICAL 1 applic
[2019-11-29 08:56] LABS: Blood Urea Nitrogen 33 mg/dL (7-17); Calcium 8.4 mg/dL (8.4-10.2); Carbon Dioxide 28 mmol/L (22-30); Chloride 103 mmol/L (98-107); Estimated CRCL calculation 23 ml/min; Estimated Glomerular Filt Rate 23; Glucose 88 mg/dL (65-105); Potassium 3.5 mmol/L (3.4-5.0); Sodium 135 mmol/L (137-145)
[2019-11-29 12:51] LABS: Glucose Point of Care 124 (65-105)
[2019-11-29] MEDS: ASPIRIN 325 MG TABLET PO (12:59)
[2019-11-29] MEDS: BUMETANIDE 1 MG TABLET 2 MG PO ×2 (12:59→16:34)
[2019-11-29] MEDS: TOLNAFTATE 1% POWDER 45 GM BTL 1 APPLIC TOPICAL ×2 (13:00→20:57)
[2019-11-29] MEDS: HYDROCORTISONE 1% 30 GM OINTMENT 1 APPLIC TOPICAL ×2 (13:00→20:57)
--- NOTE | 2019-11-29 13:12 | PM.DS ---
DS: Diagnosis Admitting Diagnosis Admitting Diagnosis: Acute kidney failure, unspecified Discharge Diagnosis (1) Acute renal failure: Qualifiers: Acute renal failure type: unspecified Qualified Code(s): N17.9 - Acute kidney failure, unspecified Code(s): N17.9 - Acute kidney failure, unspecified Status: Acute Assessment and Plan: 74 year old female who resides at [facility]. The patient stated that she has been having some swelling to her left upper arm. She has had a previous stroke in the past that affected her left side but she does not recall her arm being like this before. Pt is a poor historian appears tired and malaise. Holding some conversation. Pt looks swollen all over. potassium is 4.5, creat is 3.9. US renal is normal, no hydronephrosis. Venous dopplers are negative. History of CVA and HTN, explains that she did have dialysis in the past. Pt may benefit from dialysis, continue to watch. Pt looks much improved today. More alert holding conversation, eating her breakfast. CT scan of the head shows vasogenic edema however there is no bleeding MRI of the brain did not show any similar finding, today patient states her left arm is much improved venous Doppler was negative for DVT, most likely patient had dependent edema as patient sits on left arm, instructed to avoid leaning on left arm, today patient is participating with PT, stats doing better, patient denies any chest pain or shortness of breath, patient clinically stable continue to monitor, Patient with CKD her creatinine is trendind down from 3.8 when initially present to 2.4 today and and repeat chest x-ray showed possibly volume overload stopped the IV fluid and monitored patient is seen by Dr. Cerda shellacker and DR. Estrada,neurolgoist patient clinically symptoms are improving and now on baseline baseline per PT, discussed with the aged or disabled care worker to possibly discharge the patient to nursing for rehab. CT scan of the head shows vasogenic cerebral edema however there is no bleeding MRI of the brain did not show any similar finding, patient is seen by neurologist patient is clinically stable and seem to be her baseline (2) Anemia: Code(s): D64.9 - Anemia, unspecified Status: Chronic Assessment and Plan: Most likely is chronic. (3) HTN (hypertension): Code(s): I10 - Essential (primary) hypertension Status: Chronic Assessment and Plan: Continue lasix hold other BP medications (4) Arm edema: Code(s): R60.0 - Localized edema Status: Acute Assessment and Plan: Doppler was performed to the left upper extremity which was negative for any DVT. Could this possibly SVC syndrome? Rpt US of upper ext. lower ext is negative. ? dependant edema from neglect on that side from old stroke (5) Hypoglycemia: Code(s): E16.2 - Hypoglycemia, unspecified Status: Acute Assessment and Plan: Continue to monitor blood sugars. Check cortisol level. Could she have some adrenal insufficiency? (6) UTI (urinary tract infection): Code(s): N39.0 - Urinary tract infection, site not specified Status: Acute Assessment and Plan: pt has a UTi treat with iv rocephin pt to have blood cultures drawn ? sepsis, bc negative to date, will stop anitbiotics (7) CVA (cerebral vascular accident): Code(s): I63.9 - Cerebral infarction, unspecified Status: Acute Assessment and Plan: CT brain showed vasogenic edema MRI shows old infarcts only, carotids negative, echo negative (8) Vasogenic cerebral edema: Code(s): G93.6 - Cerebral edema Status: Acute Assessment and Plan: CT scan of the head shows vasogenic edema however there is no bleeding MRI of the brain did not show any similar finding, patient is seen by neurologist patient is clinically stable and seem to be her baseline DS: Summary Hospital Course Reason for hospit
--- NOTE | 2019-11-29 13:46 | PCOTNOTE ---
Per RN, pt not appropriate for therapy, this date due to resp. problems.
[2019-11-29 14:00] VITALS: BP 133/74; PULSE 80; RESP 19; TEMP 36.8; O2SAT 80
[2019-11-29 14:31] VITALS: PULSE 83; RESP 18; O2SAT 94
[2019-11-29 17:24] LABS: Glucose Point of Care 113 (65-105)
[2019-11-29 21:25] LABS: Glucose Point of Care 124 (65-105)
[2019-11-29 22:00] VITALS: BP 108/35; PULSE 77; RESP 14; TEMP 36.7; O2SAT 95
--- NOTE | 2019-11-30 03:37 | PC.NURSE ---
Daylight Savings Time For Daylight Savings Time Ending in the Fall - Clocks are moved back. For Daylight Savings Time Beginning in the Spring - Clocks are moved ahead. For [facility], the time of change occurs at 0200 hrs. Time is taken from the medical observer. This entry on the patient's chart recognizes the change in time reflected during documentation. Example: 2 entries for vital signs may be charted for 0200 hrs.
[2019-11-30 06:00] VITALS: BP 141/44; PULSE 89; RESP 20; TEMP 37.1; O2SAT 93
[2019-11-30 06:27] LABS: Hematocrit 25.9 % (37.0-47.0); Hemoglobin 8.6 g/dL (12.0-15.0); Mean Corpuscular HGB Conc 33.2 g/dl (32-36); Mean Corpuscular Hemoglobin 30.4 pg (26-34); Mean Corpuscular Volume 91.5 fl (80-100); Mean Platelet Volume 10.1 fl (7.4-10.4); Platelet Count Result 400 k/mm3 (150-375); Red Blood Count 2.83 M/mm3 (4.2-5.4); Red Cell Distribution Width 14.7 % (11.5-14.5); White Blood Count 10.9 K/mm3 (4.5-10.0)
[2019-11-30 08:18] LABS: Glucose Point of Care 114 (65-105)
--- NOTE | 2019-11-30 09:14 | P.PNNP_ITS ---
Progress Note: A&P Assessment and Plan (1) Acute renal failure: Qualifiers: Acute renal failure type: unspecified Qualified Code(s): N17.9 - Acute kidney failure, unspecified Code(s): N17.9 - Acute kidney failure, unspecified Status: Acute Assessment and Plan: * etiology not entirely unclear * Urine electrolytes pre renal. * Ultrasound okay. * On low-dose diuretics. * (2) Chronic kidney disease, stage 3: Code(s): N18.3 - Chronic kidney disease, stage 3 (moderate) Status: Acute Assessment and Plan: * baseline creatinine ~ 1.1 - 1.2mg/dl * secondary ot HTN, vascular disease and age (3) Anasarca: Code(s): R60.1 - Generalized edema Status: Acute Assessment and Plan: * Improved. * on oral bumex at this time (4) HTN (hypertension): Code(s): I10 - Essential (primary) hypertension Status: Chronic Assessment and Plan: * Systolic blood pressure 110-132. * On no antihypertensives except for the diuretics. (5) Anemia: Code(s): D64.9 - Anemia, unspecified Status: Chronic Assessment and Plan: * presumably related to BLOSSOM, CKD, and acute illness * Hemoglobin is improved again. (6) Hyponatremia: Code(s): E87.1 - Hypo-osmolality and hyponatremia Status: Acute Assessment and Plan: * Probably due to renal insufficiency and diuretics. * Sodium levels relatively stable in the low 130s. * Check an a.m. Additional Plan Subjective Date/time seen: 11/30/19 09:14 Interval history: Patient is feeling okay. Eating okay. Resting comfortably in bed. Review of Systems Cardiovascular: Cardiovascular: Reports no additional cardiovascular complaints Respiratory: Respiratory: Reports no additional respiratory complaints Gastrointestinal: Gastrointestinal: Reports no additional gastrointestinal complaints Genitourinary: Genitourinary: Reports no additional female genitourinary complaints Exam Narrative: Exam Narrative: General: WD/WN female in NAD Heart: normal S1 and S2; no rub or gallop Lungs: clear to auscultation Abdomen: BS+ nontender Extremities:trace edema Skin: No acute rash. Objective Data Vital Signs Vital Signs: Vital Signs - 24 hr 11/29/19 14:00 11/29/19 14:31 11/29/19 22:00 Temperature 36.8 C 36.7 C Pulse Rate 80 83 77 Respiratory Rate 19 18 14 Blood Pressure 133/74 108/35 L Pulse Oximetry 80 L 94 95 11/30/19 06:00 Temperature 37.1 C Pulse Rate 89 Respiratory Rate 20 Blood Pressure 141/44 H Pulse Oximetry 93 Intake/Output Intake/Output: Intake & Output 11/27/19 11/28/19 11/29/19 12/01/19 23:59 23:59 23:59 00:59 Intake Total 1040 840 990 150 Output Total 3000 3400 2680 1550 [facility] -1960 -2560 -1690 -1400 Meds/Results Medications: Active Medications Generic Name Dose Route Start Last Admin Trade Name Freq PRN Reason Stop Dose Admin Hydrocodone Bitart/Acetaminophen 1 tab 11/20/19 14:20 11/27/19 06:45 [place] 5-325 Mg PO 1 tab Q4H PRN Administration Pain Rated 4-6 Aspirin 325 mg 11/24/19 08:00
--- NOTE | 2019-11-30 09:14 | PM.PNNEP ---
Progress Note: A&P Assessment and Plan (1) Acute renal failure: Qualifiers: Acute renal failure type: unspecified Qualified Code(s): N17.9 - Acute kidney failure, unspecified Code(s): N17.9 - Acute kidney failure, unspecified Status: Acute Assessment and Plan: etiology not entirely unclear Urine electrolytes pre renal. Ultrasound okay. On low-dose diuretics. (2) Chronic kidney disease, stage 3: Code(s): N18.3 - Chronic kidney disease, stage 3 (moderate) Status: Acute Assessment and Plan: baseline creatinine ~ 1.1 - 1.2mg/dl secondary ot HTN, vascular disease and age (3) Anasarca: Code(s): R60.1 - Generalized edema Status: Acute Assessment and Plan: Improved. on oral bumex at this time (4) HTN (hypertension): Code(s): I10 - Essential (primary) hypertension Status: Chronic Assessment and Plan: Systolic blood pressure 110-132. On no antihypertensives except for the diuretics. (5) Anemia: Code(s): D64.9 - Anemia, unspecified Status: Chronic Assessment and Plan: presumably related to BLOSSOM, CKD, and acute illness Hemoglobin is improved again. (6) Hyponatremia: Code(s): E87.1 - Hypo-osmolality and hyponatremia Status: Acute Assessment and Plan: Probably due to renal insufficiency and diuretics. Sodium levels relatively stable in the low 130s. Check an a.m. Additional Plan Subjective Date/time seen: 11/30/19 09:14 Interval history: Patient is feeling okay. Eating okay. Resting comfortably in bed. Review of Systems Cardiovascular: Cardiovascular: Reports no additional cardiovascular complaints Respiratory: Respiratory: Reports no additional respiratory complaints Gastrointestinal: Gastrointestinal: Reports no additional gastrointestinal complaints Genitourinary: Genitourinary: Reports no additional female genitourinary complaints Exam Narrative: Exam Narrative: General: WD/WN female in NAD Heart: normal S1 and S2; no rub or gallop Lungs: clear to auscultation Abdomen: BS+ nontender Extremities:trace edema Skin: No acute rash. Objective Data Vital Signs Vital Signs: Vital Signs - 24 hr 11/29/19 14:00 11/29/19 14:31 11/29/19 22:00 Temperature 36.8 C 36.7 C Pulse Rate 80 83 77 Respiratory Rate 19 18 14 Blood Pressure 133/74 108/35 L Pulse Oximetry 80 L 94 95 11/30/19 06:00 Temperature 37.1 C Pulse Rate 89 Respiratory Rate 20 Blood Pressure 141/44 H Pulse Oximetry 93 Intake/Output Intake/Output: Intake & Output 11/27/19 11/28/19 11/29/19 12/01/19 23:59 23:59 23:59 00:59 Intake Total 1040 840 990 150 Output Total 3000 3400 2680 7320 [facility]1960 -2560 -1690 -1400 Meds/Results Medications: Active Medications Generic Name Dose Route Start Last Admin Trade Name Freq PRN Reason Stop Dose Admin Hydrocodone Bitart/Acetaminophen 1 tab 11/20/19 14:20 11/27/19 06:45 [place] 5-325 Mg PO 1 tab Q4H PRN Administration Pain Rated 4-6 Aspirin 325 mg 11/24/19 08:00 11/29/19 12:59 Aspirin PO 325 mg DAILY@0800 DOROTHY Administration Bumetanide 2 mg 11/25/19 17:00 11/29/19 16:34 Bumex Po PO 2 mg BID DOROTHY Administration Dextrose 12.5 gm 11/21/19 02:58 11/22/19 02:29 Dextrose 50% Syringe IV PUSH 12.5 gm PRN PRN Administration Hypoglycemia Protocol Glucagon 1 mg 11/21/19 02:58 11/22/19 05:26 Glucagon For Inj IM 1 mg PRN PRN Administration Hypoglycemia Protocol Glucose 15 gm 11/21/19 02:58 11/21/19 10:51 Glutose 15 PO 15 gm PRN PRN Administration Hypoglycemia Protocol Hydrocortisone 1 applic 11/21/19 09:00 11/29/19 20:57 Hydrocortisone 1% Ointment TOPICAL 1 applic Q12HR DOROTHY Administration Dextrose 1,000 mls @ 100 mls/hr 11/21/19 02:58 Dextrose 5% 1,000 Ml IVPB PRN PRN Hypoglycemia Protoco
[2019-11-30] MEDS: BUMETANIDE 1 MG TABLET 2 MG PO (10:14)
[2019-11-30] MEDS: HYDROCORTISONE 1% 30 GM OINTMENT 1 APPLIC TOPICAL (10:14)
[2019-11-30] MEDS: ASPIRIN 325 MG TABLET PO (10:14)
[2019-11-30 10:30] VITALS: BP 144/61; PULSE 86; RESP 16; TEMP 37.2; O2SAT 94
[2019-11-30 10:37] VITALS: O2SAT 93
--- NOTE | 2020-01-20 09:46 | PM.IMPN ---
Progress Note: A&P Assessment and Plan (1) Acute and chronic respiratory failure: Code(s): J96.20 - Acute and chronic respiratory failure, unspecified whether with hypoxia or hypercapnia Status: Acute Assessment and Plan: 74 year old female who resides at [facility]. The patient stated that she has been having some swelling to her left upper arm. She has had a previous stroke in the past that affected her left side but she does not recall her arm being like this before. Pt is a poor historian appears tired and malaise. Holding some conversation. Pt looks swollen all over. potassium is 4.5, creat is 3.9. US renal is normal, no hydronephrosis. Venous dopplers are negative. History of CVA and HTN, explains that she did have dialysis in the past. Pt may benefit from dialysis, continue to watch. Pt looks much improved today. More alert holding conversation, eating her breakfast. CT scan of the head shows vasogenic edema however there is no bleeding MRI of the brain did not show any similar finding, today patient states her left arm is much improved venous Doppler was negative for DVT, most likely patient had dependent edema as patient sits on left arm, instructed to avoid leaning on left arm, today patient is participating with PT, stats doing better, patient denies any chest pain or shortness of breath, patient clinically stable continue to monitor, Patient with CKD her creatinine is trendind down from 3.8 when initially present to 2.4 today and and repeat chest x-ray showed possibly volume overload stopped the IV fluid and monitored patient is seen by Dr. Cerda senior controls technician and DR. Estrada,neurolgoist patient clinically symptoms are improving and now on baseline baseline per PT, discussed with the daycare director to possibly discharge the patient to nursing for rehab. awaiting placement (2) Anemia: Code(s): D64.9 - Anemia, unspecified Status: Chronic Assessment and Plan: Stable (3) HTN (hypertension): Code(s): I10 - Essential (primary) hypertension Status: Chronic Assessment and Plan: stable will monitor (4) Arm edema: Code(s): R60.0 - Localized edema Status: Acute Assessment and Plan: no DVT (5) Hypoglycemia: Code(s): E16.2 - Hypoglycemia, unspecified Status: Acute Assessment and Plan: now back to baseline (6) Vasogenic cerebral edema: Code(s): G93.6 - Cerebral edema Status: Acute Assessment and Plan: clinially stable Subjective Date/time seen: 11/29/2019 74 year old female who resides at [facility]. The patient stated that she has been having some swelling to her left upper arm. She has had a previous stroke in the past that affected her left side but she does not recall her arm being like this before. Pt is a poor historian appears tired and malaise. Holding some conversation. Pt looks swollen all over. potassium is 4.5, creat is 3.9. US renal is normal, no hydronephrosis. Venous dopplers are negative. History of CVA and HTN, explains that she did have dialysis in the past. Pt may benefit from dialysis, continue to watch. Pt looks much improved today. More alert holding conversation, eating her breakfast. CT scan of the head shows vasogenic edema however there is no bleeding MRI of the brain did not show any similar finding, today patient states her left arm is much improved venous Doppler was negative for DVT, most likely patient had dependent edema as patient sits on left arm, instructed to avoid leaning on left arm, today patient is participating with PT, stats doing better, patient denies any chest pain or shortness of breath, patient clinically stable continue to monitor, Patient with CKD her creatinine is trendind down from 3.8 when initially present to 2.4 today and and repeat chest x-ray showed possibly volume overload stopped the IV fluid and monitored patient is seen by Kallie
== END 2019-11-30 11:30 | DRG 683 ==
LOC: ANHED 14:19 → ANH3MEDSUR 15:01 → ANHIMU 11-23 02:36 → ANH3MEDSUR 11-25 10:54 → ANHIMU 12-03 13:56
PROVIDERS: Family Medicine; Internal Medicine Nephrology; Nurse Practitioner; Admitting Provider Hospitalist; Emergency Provider Emergency Medicine; PCP Family Medicine; Visit Provider Family Medicine
DX: N17.9 Acute kidney failure, unspecified (principal); I69.354 Hemiplegia and hemiparesis following cerebral infarction affecting left non-dominant side; N39.0 Urinary tract infection, site not specified; E87.1 Hypo-osmolality and hyponatremia; E16.2 Hypoglycemia, unspecified; N18.3 Chronic kidney disease, stage 3 (moderate); R60.1 Generalized edema; I12.9 Hypertensive chronic kidney disease with stage 1 through stage 4 chronic kidney disease, or unspecified chronic kidney disease; N18.9 Chronic kidney disease, unspecified; D63.1 Anemia in chronic kidney disease
CPT/HCPCS: 36415; 36600; 70450; 70551; 71045; 71046; 71250; 76775; 80048; 80053; 80069; 80074; 80307; 81001; 81050; 82043; 82384; 82436; 82533; 82570; 82728; 82805; 83540; 83550; 83735; 83874; 83935; 84105; 84156; 84300; 84439; 84443; 84480; 84540; 85025; 85027; 85046; 85055; 85610; 85730; 85999; 86706; 87040; 87081; 87086; 87385; 92611; 93306; 93880; 93970; 93971; 96360; 96361; 97110; 97161; 97166; 97530; 97535; 99285; A9270; G0378; J0696; J1610; J7030; J7070